=== PATIENT | male | born 1950 | race Caucasian/White ===

== ENCOUNTER 2022-06-14 07:07 | Outpatient (REF) | payer MEDICARE, SELFPAY ==
[2022-06-14 11:08] LABS: MANUAL DIFF FLAG NO
[2022-06-14 11:49] LABS: Basophils Percent Auto 0.7 % (0-2); Eosinophils Absolute Auto 0.4 X10*3/uL (0.0-0.4); Eosinophils Percent Auto 6.5 % (0-4); Hematocrit 40.7 % (42.0-52.0); Hemoglobin 13.7 g/dl (14.0-18.0); Imm Gran Abs Auto 0.04 X10*3/uL (0.00-0.03); Imm Gran Pct Auto 0.7 % (0.0-0.4); Lymphocytes Absolute Auto 1.5 X10*3/uL (1.2-4.9); Lymphocytes Percent Auto 26.4 % (20-40); Mean Corpuscular HGB Conc 33.7 g/dl (31.0-36.0); Mean Corpuscular Hemoglobin 32.4 pg (27.0-33.0); Mean Corpuscular Volume 96.2 fL (80.0-98.0); Mean Platelet Volume 11.8 fL (9.4-12.4); Monocytes Absolute Auto 0.6 X10*3/uL (0.1-1.2); Monocytes Percent Auto 10.6 % (2-11); Neutrophils Absolute Auto 3.1 x10*3/uL (2.0-8.3); Neutrophils Percent Auto 55.1 % (45-73); Platelet Count 301 X10*3/uL (160-400); Red Blood Count 4.23 X10*6/uL (4.60-5.80); White Blood Count 5.6 X10*3/uL (4.8-10.8)
[2022-06-14 12:09] LABS: Erythrocyte Sedimentation Rate 8 MM/HR (0-15)
[2022-06-14 12:34] LABS: Alanine Aminotransferase 24 U/L (0-40); Alkaline Phosphatase 52 U/L (39-117); Anion Gap 16 (12-20); Aspartate Amino Transferase 18 U/L (5-37); Blood Urea Nitrogen 11 mg/dL (9-16); Calcium 8.9 mg/dL (8.4-10.2); Carbon Dioxide 23 mmol/L (22-29); Chloride 107 mmol/L (96-108); Cholesterol 235 mg/dL; Estimated Glomerular Filt Rate > 60; Glucose Fasting 117 mg/dL (60-99); HDL Cholesterol 56 mg/dL; LDL Cholesterol Calculated 158 mg/dl; Potassium 4.5 mmol/L (3.3-5.1); Prostate Specific Antigen Scr 3.19 ng/mL (<0.05-4.0); Sodium 141 mmol/L (135-145); TSH reflex Free T4 1.21 uIU/mL (0.32-4.0); Total Protein 6.2 g/dL (6.5-8.0); Triglycerides 107 mg/dL
[2022-06-20 15:03] LABS: Testosterone, Free 73.6 pg/mL (30.0-135.0); Testosterone, Total 484 ng/dL (250-1100)
== END 2022-06-14 07:08 | disposition home or self-care (01) ==
LOC: HO.WFDLDS 07:07
PROVIDERS: Visit Provider Family Medicine
DX: Z00.00 Encounter for general adult medical examination without abnormal findings (principal); Z12.5 Encounter for screening for malignant neoplasm of prostate; R68.82 Decreased libido; M25.531 Pain in right wrist
CPT/HCPCS: 36415; 80053; 80061; 84153; 84402; 84403; 84443; 85025; 85652

== ENCOUNTER 2022-06-15 08:51 | Outpatient (REF) | payer MEDICARE, SELFPAY ==
[2022-06-15 12:27] LABS: Appearance Urine Clear; Color Urine Yellow; Glucose Urine UA Negative (Negative); Leukocyte Esterase Urine Negative (Negative); Nitrite Urine Negative (Negative); Specific Gravity - Urine <= 1.005 (1.005-1.025); Urine Blood Negative (Negative); Urine Ketones Negative (Negative); Urine Protein Negative (Neg-Trace)
[2022-06-15 13:36] LABS: Microalbumin Urine < 5.0 mg/L
== END 2022-06-15 08:52 | disposition home or self-care (01) ==
LOC: HO.WFDLNP 08:51
PROVIDERS: Visit Provider Family Medicine
DX: Z00.00 Encounter for general adult medical examination without abnormal findings (principal); I10 Essential (primary) hypertension
CPT/HCPCS: 81003; 82043

== ENCOUNTER 2022-06-27 14:50 | Outpatient (REF) | payer MEDICARE, SELFPAY ==
--- NOTE | ~2022-06-27 | US_ITS ---
EXAMINATION: US SCROTUM CLINICAL INFORMATION: Other specified disorders of the male genital organs. Left testicular/scrotal mass. No impulse with Valsalva or cough. COMPARISON: None available. TECHNIQUE: A sonogram of the scrotum was performed assessing daniel-scale appearance and color Doppler flow. Spectral Doppler analysis of the arterial and venous flow were performed in the testes bilaterally. FINDINGS: RIGHT: Right testicle measures 5.2 x 2.5 x 3.2 cm, volume 22.0 mL. No focal testicular parenchymal lesions are visualized. Spectral Doppler analysis of the arterial and venous flow is normal in the right testis. Right epididymal head is normal in size. 9 mm, 7 mm and 4 mm right epididymal head cysts versus spermatoceles are seen. No right varicocele is seen. There is a small right hydrocele. Right epididymal Doppler flow is normal. LEFT: Left testicle measures 4.9 x 2.7 x 3.5 cm, volume 23.7 mL. No focal testicular parenchymal lesions are visualized. Spectral Doppler analysis of the arterial and venous flow is normal in the left testis. Left epididymal head is normal in size. Within the left epididymal head, a 6.8 x 4.1 x 4.8 cm complex cyst is seen. No left hydrocele or varicocele is seen. Left epididymal Doppler flow is normal. US/US scrotum IMPRESSION: 1. No testicular mass or torsion is seen bilaterally. 2. There are bilateral epididymal head cysts versus spermatoceles. The largest of these on the left shows a maximal diameter of 6.8 cm, with septations. This corresponds with the palpable mass described the patient. Consider Urology evaluation and management. 3. There is a small right hydrocele.
--- NOTE | ~2022-06-27 | XR_ITS ---
EXAMINATION: XR HIP, RIGHT XR HIP, LEFT CLINICAL INFORMATION: Bilateral hip pain. COMPARISON: None available. TECHNIQUE: Two views of each of the hips. FINDINGS: Examination demonstrates moderate to severe osteoarthritis of the right hip and moderate osteoarthritis of the left hip, with joint space narrowing, sclerosis, and osteophyte formation. No fracture or dislocation is appreciated. Bony mineralization appears preserved. No lytic or sclerotic bony lesion is seen. No soft tissue mass is seen. Surgical clips project over the scrotum. 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 Moderate osteoarthritis of the left.
--- NOTE | ~2022-06-27 | XR_ITS ---
EXAMINATION: XR HIP, RIGHT XR HIP, LEFT CLINICAL INFORMATION: Bilateral hip pain. COMPARISON: None available. TECHNIQUE: Two views of each of the hips. FINDINGS: Examination demonstrates moderate to severe osteoarthritis of the right hip and moderate osteoarthritis of the left hip, with joint space narrowing, sclerosis, and osteophyte formation. No fracture or dislocation is appreciated. Bony mineralization appears preserved. No lytic or sclerotic bony lesion is seen. No soft tissue mass is seen. Surgical clips project over the scrotum. 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 Moderate osteoarthritis of the left.
== END 2022-06-27 14:51 | disposition home or self-care (01) ==
LOC: HO.US 14:50
PROVIDERS: PCP Family Medicine; Visit Provider Family Medicine
DX: N50.89 Other specified disorders of the male genital organs (principal); M25.551 Pain in right hip; M25.552 Pain in left hip
CPT/HCPCS: 73502; 76870

== ENCOUNTER → 2022-08-04 13:42 | Outpatient (BNVA) | payer MEDICARE, SELFPAY | PROVIDERS: PCP Family Medicine; Visit Provider Nurse Practitioner Family | DX: N43.3 Hydrocele, unspecified (principal); N52.9 Male erectile dysfunction, unspecified | CPT/HCPCS: 99202 ==

== ENCOUNTER 2022-11-10 14:21 | Outpatient (AMB) | payer MEDICARE, SELFPAY ==
--- NOTE | 2022-11-10 14:31 | A.OFFVIS_ITS ---
Intake Intake Visit Reasons: Testicular pain- 3m follow up Intake Note: Patient presents for follow up visit testicular pain/hydrocele Urology Medications: tadalafil Blood Thinner: none Health Technician Required: No Accompanied by: Self / Same As Patient Allergies No Known Allergies Allergy (Verified 11/12/22 21:34) Medication List - Last Reconciled 11/12/22 by JEFFREY Gomez lisinopril 40 mg PO DAILY 30 days tadalafil (Cialis) 5 mg PO DAILY 90 days tadalafil (Cialis) 15 mg (3 x 5 mg) PO DAILY PRN 90 days HPI HPI Comments History of Present Illness Details Thanh is a pleasant 72-year-old male patient of Dr. Jordan. He presents to the office today for a follow up. Of note, patient was seen approximately 3 months ago as a new patient for erectile dysfunction at which time he was prescribed p.r.n. on demand Cialis. In discussion with the patient today reports to be doing and feeling well. He reports somewhat improvement in erections on p.r.n. 20 mg Cialis. Discussed trial of low-dose Cialis daily with p.r.n. on demand versus penile injection therapy for treatment of ED. Patient also with a history of bilateral epididymal head cysts versus spermatoceles. The largest of these on the left shows a maximal diameter of 6.8 cm with septations. There is a small right hydrocele. Patient denies testicular/scrotal pain. He denies urinary urgency, urinary frequency, incontinence, nocturia, hematuria, dysuria, foul smelling urine, changes to urinary stream, flank pain, fever, and or chills. He is happy with his current voiding parameters. In review of patient's chart it appears PSA 06/22--3.2 testosterone level-- 484. PFSH Medical History Hypertension Family History Mother Hypertension Hyperlipidemia No family history of mental disorder Father No family history of mental disorder Hypertension Hyperlipidemia Social History Household Members: Spouse Housing: House Alcohol intake: current Alcohol intake frequency: 3 or more drinks per day Alcohol type: beer Patient Tobacco Use Status: Never used Tobacco e-Cigarette/Vaping Use: Never Used Second Hand Smoke Exposure: No Current occupational status: employed Review of Systems Const All systems reviewed & are unremarkable except as noted in HPI and below Reports as per HPI Eyes Reports no additional complaints ENT Reports no additional complaints Card Reports no additional complaints Resp Reports no additional complaints GI Reports no additional complaints Reports as per HPI Neuro Reports no additional complaints Psych Reports no additional complaints Endo Reports no additional complaints Gilberto/Lymph Reports no additional complaints Aller/Immun Reports no additional complaints Physical Exam Const General: cooperative, healthy appearing, comfortable, no acute distress, well developed, alert and awake Orientation/consciousness: patient oriented x3 Limitations: no limitations HEENT Head: Yes normal to inspection, Yes normocephalic and Yes atraumatic Ears: hearing grossly normal bilaterally Eyes General: appearance normal, both eyes and all related structures Neck Neck: Yes normal visual inspection and Yes trachea midline Chest Chest palpation & inspection: normal inspection of the chest Resp Effort & Inspection: normal respiratory effort and able to speak in complete sentences Cardio Rate: regular rate GI Inspection: Yes normal to inspection General: Yes no CVA tenderness Back/Spine/Pelvis Back: no CVA tenderness Skin General skin exam: no rashes or lesions noted Neuro General: patient oriented x3 Extrem General: Yes normal to inspection Psych Appearance: grossly normal and well kempt Mental Status: mental status grossly normal Speech and movement: Normal speech and movement present and Clear speech present Affect: normal affect Attitude: cooperative Thought process: Normal thought process present Thought content: Normal thought content present Insight: Good insight present (Psych) Judgement: Good judgement present (Psych) Results AMB Urinalysis, Automated UA Leukoctes 0 Janet/uL Last Edit by [employer] on 11/10/22 14:52 UA Nitrite Negative Last Edit by [employer] on 11/10/22 14:52 UA Urobilinogen 0.2 mg/dL Last Edit by [employer] on 11/10/22 14:52 UA Protein 0 mg/dL Last Edit by [employer] on 11/10/22 14:52 UA pH 6.0 Last Edit by [employer] on 11/10/22 14:52 UA Blood 0 Carlos/uL Last Edit by [employer] on 11/10/22 14:52 UA Specific [place] 1.010 Last Edit by Donytresguadalupe Ovallenavya on 11/10/22 14:52 UA Ketone Negative Last Edit by Adelina Yamilenavya on 11/10/22 14:52 UA Bilirubin 0 mg/dL Last Edit by Adelina Yamilenavya on 11/10/22 14:52 UA Glucose 0 mg/dL Last Edit by Adelina Yamilenavya on 11/10/22 14:52 Results Reviewed Results Reviewed: Laboratory Last Values Urine pH (Auto) 6.0 11/10/22 14:49 Specific [place] (Auto) 1.010 11/10/22 14:49 Urine Protein (Auto) 0 mg/dL 11/10/22 14:49 Glucose (UA)(Auto) 0 mg/dL 11/10/22 14:49 Urine Ketones (Auto) Negative 11/10/22 14:49 Urine Blood (Auto) 0 Carlos/uL 11/10/22 14:49 Urine Nitrite (Auto) Negative 11/10/22 14:49 Urine Bilirubin (Auto) 0 mg/dL 11/10/22 14:49 Urine Urobilinogen (Auto) 0.2 mg/dL 11/10/22 14:49 Leukocyte Esterase (Auto) 0 Janet/uL 11/10/22 14:49 Assessment & Plan Assessment & Plan (1) Erectile dysfunction: Code(s): N52.9 - Male erectile dysfunction, unspecified (2) Hydrocele: Code(s): N43.3 - Hydrocele, unspecified Plan Patient reporting somewhat adequate erections for penetration on 20 mg of Cialis p.r.n. sexual activity; however would like to trial daily low dose with PRN on demand. Stop PRN Start Cialis 5 mg daily. P.r.n. Cialis 10-15 mg as needed for sexual activity Discussed penile injection therapy for erectile dysfunction at length; information regarding penile injection therapy provided Will continue with surveillance monitoring of hydrocele; patient denies pain Patient reports be happy with current voiding parameters and denies any issues with his urination at this time. Follow-up in 3 months; if not sooner with any questions, concerns, and or issues. Orders: Orders AMB Urinalysis Automated 11/10/22 Z13.9 - Encounter for screening, unspecified Medications: New tadalafil (Cialis) [id number] [facility] [id number] Member [id number] 5 mg PO DAILY 90 tabs 0RF 90 days tadalafil (Cialis) Take 2-3 tabs 30min- 1 hour prior to sexual activity; use as directed 15 mg (3 x 5 mg) PO DAILY PRN 90 tabs 0RF sexual activity 90 days Discontinued tadalafil (Cialis) administer approximately 30min before sexual activity; do not use more than 1 dose per 24hrs [facility] Group [facility] [id number] Discontinued Reason: Doctor's Order 20 mg PO DAILY PRN 20 tabs 0RF sexual activity 30 days Patient Instructions: The patient had an opportunity to ask questions regarding the treatment plan. All questions were answered. Physical exam, labs, and imaging were discussed and reviewed in detail. As well as risks, benefits, and discussion of treatment choices. No major barriers to understanding were identified. The patient expressed understanding and agreement with the above treatment plan. The patient was made aware they should contact our office by phone for worsening of their current condition, the appearance of new symptoms, or with any questions or concerns. Compliance is encouraged with any medications and follow up testing that is ordered. It is a privilege to be allowed the opportunity to participate in? your urological care.? Again, if you have any questions or concerns If you have any questions or concerns please do not hesitate to contact me. The office is [phone]. This note is constructed using voice recognition software. While every effort has been made to ensure accuracy blanching machine operator errors may have been included. Yours sincerely, JEFFREY Gomez Coding Level of Care Code Est Pt Level 3 (50930) Diagnoses Erectile dysfunction N52.9 Hydrocele N43.3
== END 2022-11-10 15:32 | disposition home or self-care (01) ==
PROVIDERS: Visit Provider Nurse Practitioner Family
DX: N52.9 Male erectile dysfunction, unspecified (principal); N43.3 Hydrocele, unspecified
CPT/HCPCS: 99213

== ENCOUNTER → 2022-11-10 14:21 | Outpatient (BNVA) | payer MEDICARE, SELFPAY | PROVIDERS: Visit Provider Nurse Practitioner Family | DX: N52.9 Male erectile dysfunction, unspecified (principal); N43.3 Hydrocele, unspecified; Z79.899 Other long term (current) drug therapy | CPT/HCPCS: 99212 ==

== ENCOUNTER 2023-02-12 14:25 | Outpatient (AMB) | payer MEDICARE, SELFPAY ==
--- NOTE | 2023-02-12 14:28 | MHC.OFFVIS ---
Intake Intake Visit Reasons: 3m follow up Intake Note: Patient presents for follow up visit testicular pain/hydrocele Urology Medications: tadalafil Blood Thinner: none Upsetting Machine Operator Required: No Accompanied by: Self / Same As Patient Allergies No Known Allergies Allergy (Verified 02/12/23 18:22) Medication List - Last Reconciled 02/12/23 by JEFFREY Gomez lisinopril 40 mg PO DAILY 30 days meloxicam 15 mg PO DAILY 30 days HPI HPI Comments History of Present Illness Details Thanh is a pleasant 72-year-old male patient of Dr. Joradn. He has a past medical history of hypertension. He presents to the office today for a follow up of his erectile dysfunction. In discussion with the patient today he reports no improvement in erectile dysfunction with low-dose daily Cialis with additional dosing p.r.n. 1 hour prior to sexual activity. Discussed at length potential causes for erectile dysfunction patient has been experiencing. Previous workup has included labs; PSA 06/22--3.2 testosterone level-- 484. Patient also with a history of bilateral epididymal head cysts versus spermatoceles. The largest of these on the left shows a maximal diameter of 6.8 cm with septations. There is a small right hydrocele. Patient denies testicular/scrotal pain. He denies urinary urgency, urinary frequency, incontinence, nocturia, hematuria, dysuria, foul smelling urine, changes to urinary stream, flank pain, fever, and or chills. He is happy with his current voiding parameters. Discussed trial of injectable therapy for erectile dysfunction. Patient otherwise denies any other issues or concerns at this time. [facility] Medical History Hypertension Family History Mother Hypertension Hyperlipidemia No family history of mental disorder Father No family history of mental disorder Hypertension Hyperlipidemia Social History Household Members: Spouse Housing: House Alcohol intake: current Alcohol intake frequency: 3 or more drinks per day Alcohol type: beer Patient Tobacco Use Status: Never used Tobacco e-Cigarette/Vaping Use: Never Used Second Hand Smoke Exposure: No Current occupational status: employed Review of Systems Const All systems reviewed & are unremarkable except as noted in HPI and below Reports as per HPI Eyes Reports no additional complaints ENT Reports no additional complaints Card Reports as per HPI Resp Reports no additional complaints GI Reports no additional complaints Reports as per HPI Neuro Reports no additional complaints Psych Reports no additional complaints Endo Reports no additional complaints Gilberto/Lymph Reports no additional complaints Aller/Immun Reports no additional complaints Physical Exam Const General: cooperative, healthy appearing, comfortable, no acute distress, well developed, alert and awake Orientation/consciousness: patient oriented x3 Limitations: no limitations HEENT Head: Yes normal to inspection, Yes normocephalic and Yes atraumatic Ears: hearing grossly normal bilaterally Eyes General: appearance normal, both eyes and all related structures Neck Neck: Yes normal visual inspection and Yes trachea midline Chest Chest palpation & inspection: normal inspection of the chest Resp Effort & Inspection: normal respiratory effort and able to speak in complete sentences Cardio Rate: regular rate GI Inspection: Yes normal to inspection General: Yes no CVA tenderness Back/Spine/Pelvis Back: no CVA tenderness Skin General skin exam: no rashes or lesions noted Neuro General: patient oriented x3 Extrem General: Yes normal to inspection Psych Appearance: grossly normal and well kempt Mental Status: mental status grossly normal Speech and movement: Normal speech and movement present and Clear speech present Affect: normal affect Attitude: cooperative Thought process: Normal thought process present Thought content: Normal thought content present Insight: Good insight present (Psych) Judgement: Good judgement present (Psych) Results AMB Urinalysis, Automated UA Leukoctes 0 Janet/uL Last Edit by [employer] on 02/12/23 14:41 UA Nitrite Negative Last Edit by [employer] on 02/12/23 14:41 UA Urobilinogen 0.2 mg/dL Last Edit by [employer] on 02/12/23 14:41 UA Protein 0 mg/dL Last Edit by [employer] on 02/12/23 14:41 UA pH 6.0 Last Edit by [employer] on 02/12/23 14:41 UA Blood 0 Carlos/uL Last Edit by [employer] on 02/12/23 14:41 UA Specific [place] 1.010 Last Edit by [employer] on 02/12/23 14:41 UA Ketone Negative Last Edit by [employer] on 02/12/23 14:41 UA Bilirubin 0 mg/dL Last Edit by Adelina Milian on 02/12/23 14:41 UA Glucose 0 mg/dL Last Edit by Adelina Milian on 02/12/23 14:41 Results Reviewed Results Reviewed: Laboratory Last Values Urine pH (Auto) 6.0 02/12/23 14:30 Specific [place] (Auto) 1.010 02/12/23 14:30 Urine Protein (Auto) 0 mg/dL 02/12/23 14:30 Glucose (UA)(Auto) 0 mg/dL 02/12/23 14:30 Urine Ketones (Auto) Negative 02/12/23 14:30 Urine Blood (Auto) 0 Carlos/uL 02/12/23 14:30 Urine Nitrite (Auto) Negative 02/12/23 14:30 Urine Bilirubin (Auto) 0 mg/dL 02/12/23 14:30 Urine Urobilinogen (Auto) 0.2 mg/dL 02/12/23 14:30 Leukocyte Esterase (Auto) 0 Janet/uL 02/12/23 14:30 Assessment & Plan Assessment & Plan (1) Erectile dysfunction: Code(s): N52.9 - Male erectile dysfunction, unspecified (2) Hydrocele: Code(s): N43.3 - Hydrocele, unspecified Plan In office urinalysis results reviewed with the patient today; as noted above. Discussed at length potential causes of erectile dysfunction. Discussed further treatment options of erectile dysfunction in the setting of failed oral therapy. Information provided on penile injection therapy; this was discussed at length Patient otherwise denies any bothersome urinary issues or concerns at this time. Patient reports be happy with current voiding parameters. Discussed and stressed the importance of lifestyle modifications regarding erectile dysfunction. Will send prescription through [facility] as discussed Will call once medication is available for penile injection teaching. Orders: Orders AMB Urinalysis Automated Today Z13.9 - Encounter for screening, unspecified Medications: Discontinued tadalafil (Cialis) [id number] [facility] [id number] Member [id number] Discontinued Reason: Doctor's Order 5 mg PO DAILY 90 days 90 tabs 0RF tadalafil (Cialis) Take 2-3 tabs 30min- 1 hour prior to sexual activity; use as directed Discontinued Reason: Doctor's Order 15 mg (3 x 5 mg) PO DAILY 90 days PRN 90 tabs 0RF sexual activity Patient Instructions: The patient had an opportunity to ask questions regarding the treatment plan. All questions were answered. Physical exam, labs, and imaging were discussed and reviewed in detail. As well as risks, benefits, and discussion of treatment choices. No major barriers to understanding were identified. The patient expressed understanding and agreement with the above treatment plan. The patient was made aware they should contact our office by phone for worsening of their current condition, the appearance of new symptoms, or with any questions or concerns. Compliance is encouraged with any medications and follow up testing that is ordered. It is a privilege to be allowed the opportunity to participate in? your urological care.? Again, if you have any questions or concerns If you have any questions or concerns please do not hesitate to contact me. The office is [phone]. This note is constructed using voice recognition software. While every effort has been made to ensure accuracy gravedigger errors may have been included. Yours sincerely, JEFFREY Gomez Coding Level of Care Code Est Pt Level 3 (80402) Diagnoses Erectile dysfunction N52.9 Hydrocele N43.3
== END 2023-02-12 15:04 | disposition home or self-care (01) ==
PROVIDERS: PCP Family Medicine; Visit Provider Nurse Practitioner Family
DX: N52.9 Male erectile dysfunction, unspecified (principal); N43.3 Hydrocele, unspecified; Z13.9 Encounter for screening, unspecified
CPT/HCPCS: 99213

== ENCOUNTER → 2023-02-12 14:25 | Outpatient (BNVA) | payer MEDICARE, SELFPAY | PROVIDERS: PCP Family Medicine; Visit Provider Nurse Practitioner Family | DX: N52.9 Male erectile dysfunction, unspecified (principal); N43.3 Hydrocele, unspecified | CPT/HCPCS: 81003; 99212 ==

== ENCOUNTER 2023-04-05 15:47 | Outpatient (AMB) | payer MEDICARE, SELFPAY ==
[2023-04-05 15:52] VITALS: BP 142/80; PULSE 61; RESP 14; O2SAT 97; BMI 30.6
--- NOTE | 2023-04-05 15:52 | MHC.PC.OV ---
Vital Signs 04/05/23 15:52 Height 5 ft 10.5 in Weight 216 lb BMI 30.6 BP 142/80 H Blood Pressure Location Lt brachial Position Sitting Respiration 14 Pulse 61 Pulse Source Pulse Oximeter Pulse Oximetry (%) 97 Oxygen Delivery Method Room Air Intake Visit Reasons: PE Intake Note: Patient is here for his physical today. Allergies No Known Allergies Allergy (Verified 04/05/23 16:01) Tobacco use date assessed: 04/05/23 Fall risk assessment: No Falls in past year Last assessed Fall Risk: 04/05/23 Dental Screening Dental Screen Date: 04/05/23 Did you have a dental visit in the last 12 months?: No Did you have a dental problem in the last 6 months where you did not have access to dental care?: No Was dental information given to patient?: Patient declined HPI PE HPI Details Patient?presents?for?complete?physical?exam. Had?labs?in?May?after?his?last?visit Reviewed?labs?with?patient: Elevated?fasting?blood?sugar?at?117 Elevated?LDL?cholesterol?though?his?HDL?is?good PSA?within?normal?limits?at?upper?range. Testosterone?levels?were?within?normal?limits He?has?seen?Urology. Ultrasound?of?scrotum?shows?epididymal?cysts X-rays?of?bilateral?hips?shows?moderate?arthritis. [facility] Medical History Hypertension Family History Mother Hypertension Hyperlipidemia No family history of mental disorder Father No family history of mental disorder Hypertension Hyperlipidemia Social History Household Members: Spouse Housing: House Alcohol intake: current Alcohol intake frequency: 3 or more drinks per day Alcohol type: beer Patient Tobacco Use Status: Never used Tobacco e-Cigarette/Vaping Use: Never Used Second Hand Smoke Exposure: No Current occupational status: employed Cognitive needs: No Hearing needs: No Vision needs: No Questionnaire PHQ-9 Over the last 2 weeks, how often have you been bothered by any of the following problems? 1. Little interest or pleasure in doing things: not at all 2. Feeling down, depressed, or hopeless: not at all 3. Trouble falling or staying asleep, or sleeping too much: not at all 4. Feeling tired or having little energy: not at all 5. Poor appetite or overeating: not at all 6. Feeling bad about yourself - or that you are a failure or have let yourself or your family down: not at all 7. Trouble concentrating on things, such as reading the newspaper or watching television: not at all 8. Moving or speaking so slowly that other people could have noticed. Or the opposite - being so fidgety or restless that you have been moving around a lot more than usual: not at all 9. Thoughts that you would be better off or of hurting yourself in some way: not at all Total score: 0 Source: Developed by Drs. Ben Mcallister, Antoinette Machaod, Garcia Joyce and colleagues, with an educational agnes from [employer]. Thrive Questionnaire Date Thrive assessed: 04/05/23 I am a: Patient What is your living situation today?: I have a steady place to live Within the past 12 months, did the food you bought not last and you didn't have the money to get more?: Never true Within the past 12 months, did you worry whether your food would run out before you got money to buy more?: Never true Do you have trouble paying for medicines?: No Do you have trouble getting transportation to medical appointments?: No Do you have trouble paying your heating and electricity bill?: No Do you have trouble taking care of your child, family member or friend?: No Do you have trouble with day-to-day activities such as bathing, preparing meals, shopping, managing finances, etc.?: No Are you currently unemployed and looking for a job?: No Are you interested in more education?: No AUDIT C Alcohol Use Questionnaire (AUDIT-C) 1. How often do you have a drink containing alcohol?: 4 or more times a week 2. How many drinks containing alcohol do you have on a typical day when you are drinking?: 1 or 2 3. How often do you have six or more drinks on one occasion?: Never Total Score: 4 YASMINE-7 AMB Questionnaire YASMINE-7 Date YASMINE - 7 assessed: 04/05/23 Feeling nervous, anxious, or on edge: 0 = Not at all Not being able to stop or control worryin = Not at all Worrying too much about different things: 0 = Not at all Trouble relaxin = Not at all Being so restless that it is hard to sit still: 0 = Not at all Becoming easily annoyed or irritable: 0 = Not at all Feeling afraid as if something awful might happen: 0 = Not at all Total YASMINE-7 score (0-4 normal; 5-9 mild; 10-14 moderate; 15-21 severe): 0 Source: Developed by Drs. Ben Mcallister, Antoinette Machado, Garcia Joyce and colleagues, with an educational agnes from [employer]. Review of Systems Const Denies chills, Denies fatigue, Denies fever(s), Denies headache(s) and Denies weakness Eyes Denies change in vision ENT Denies dizziness, Denies headache(s), Denies hearing loss, Reports nasal congestion, Denies sinus pain, Denies sinus pressure and Denies sore throat Card Denies chest pain, Denies lightheadedness, Denies dyspnea and Denies other (palpitations) Resp Denies cough, Denies dyspnea and Denies wheezing GI Denies abdominal pain, Denies melena, Denies hematochezia, Denies change in bowel habits, Denies dyspepsia and Denies nausea Denies hematuria and Denies dysuria Musc Details: Left?biceps?weakness Denies abnormal gait, Denies myalgias, Denies arthralgias, Denies numbness and Denies tingling Skin/Breast Denies rash, Denies unusual bruising and Denies wounds Neuro Denies abnormal gait, Denies dizziness, Denies headache(s), Denies memory loss, Denies numbness, Denies Sensory deficit (Neuro), Denies tingling and Denies weakness Psych Denies anxiety, Denies depression and Denies memory loss Endo Denies cold intolerance, Denies fatigue, Denies heat intolerance, Denies polydipsia and Denies polyuria Gilberto/Lymph Denies easy bleeding and Denies easy bruising Aller/Immun Denies wheezing Physical exam (Primary Care) Vital Signs: Last Vital Signs Pulse 61 04/05/23 15:52 Resp 14 04/05/23 15:52 BP 142/80 H 04/05/23 15:52 Pulse Ox 97 04/05/23 15:52 Oxygen Delivery Method Room Air 04/05/23 15:52 BMI result Body Mass Index 30.6 Tobacco/Smoking Status: Tobacco use Status Tobacco use date assessed 04/05/23 04/05/23 16:02 Patient Tobacco Use Status Never used Tobacco 04/05/23 16:00 e-Cigarette/Vaping Use Never Used 04/05/23 16:00 PHQ-9: PHQ-9 Score PHQ-9: Total score 0 04/05/23 16:07 Thrive Assessment: Date of Thrive Assessment Date Thrive assessed 04/05/23 04/05/23 16:07 Const General: no acute distress, well developed, alert and awake Nutritional Appearance: well nourished Orientation/consciousness: patient oriented x3 HENMT Other: Mild?nasal?congestion Head: Yes normocephalic and Yes atraumatic Ears: hearing grossly normal bilaterally and TM's normal bilaterally General nose exam: Normal external nose present and Normal nares present Mouth: Normal oral and palatal mucosa present and moist mucous membranes Teeth and gingiva: dentition normal Throat: Yes posterior oropharynx normal Eyes Pupils: Equal, round and reactive pupils present and Pupil accommodation reflex normal EOM: EOMs intact bilaterally Neck Neck: Yes normal visual inspection, Yes no lymphadenopathy and Yes trachea midline Thyroid: Thyroid normal Carotids: no bruits Lymphatic: no lymphadenopathy noted Chest Chest palpation & inspection: normal inspection of the chest Resp Effort & Inspection: normal respiratory effort Auscultation: clear to auscultation bilaterally Cardio Rate: regular rate Rhythm: regular rhythm Heart sounds: S1 normal heart sound present, S2 normal heart sound present, no gallops, no murmurs and no rubs Bruits: no abdominal aortic bruits and no carotid bruits GI Palpation (GI): No Abdominal aortic bruit present, Soft to palpation, nontender, No hepatosplenomegaly present and No Rebound tenderness present Auscultation: normal bowel sounds General: Yes no CVA tenderness Back/Spine/Pelvis Back: no CVA tenderness Cervical Spine: cervical ROM normal and No Cervical spine tenderness Thoracic/Lumbar Spine: thoraco-lumbar ROM normal, No pain with thoraco-lumbar ROM, No thoracic spinal tenderness and No lumbar spinal tenderness Skin Lesions: no lesions Rashes: no rashes Trauma: no lacerations or abrasions Wounds: no wounds Nails: normal Neuro General: patient oriented x3, gait normal and CN's II-XI intact bilaterally Cranial nerves: Yes Equal, round and reactive pupils present Cognition (Neuro): normal cognition Gait exam (Neuro): Normal gait present Motor exam (neuro): 5/5 motor strength present throughout Sensory Exam: No Sensory deficit (Neuro) Deep tendon reflexes (DTR's): Right patellar reflex intensity grade: 2+ and Left patellar reflex intensity grade: 2+ Extrem Other: Left?biceps?weakness: ?Strength?4/5?with?flexion?at?elbow?and?shoulder General: Yes normal to inspection and No edema Psych Appearance: grossly normal Affect: normal affect Attitude: cooperative Thought process: Normal thought process present Results AMB Hemoglobin A1c AMB Hemoglobin A1c 5.6 % Last Edit by Ilda Espinoza CMA on 04/05/23 16:49 Assessment and Plan Assessment & Plan (1) Strain of left biceps: Code(s): S46.212A - Strain of muscle, fascia and tendon of other parts of biceps, left arm, initial encounter Plan: History?of?left?biceps?strain?and?has?left?arm?weakness. Patient?is?a?[place]rate[place]?and?has?difficulty?drawing?a?bow Referred?for?physical?therapy (2) Muscle left arm weakness: Code(s): M62.81 - Muscle weakness (generalized) Plan: As?above (3) Essential hypertension: Code(s): I10 - Essential (primary) hypertension Plan: Blood?pressure?is?elevated.??Goal?is?less?than?140/90 Continue?lisinopril?and?added?amlodipine Follow-up?at?his?next?visit (4) Hyperlipidemia: Code(s): E78.5 - Hyperlipidemia, unspecified Plan: Elevated?LDL?cholesterol.??HDL?ratio?is?fairly?good. Encouraged?diet?low?in?saturated?fats?and?cholesterol Encouraged?weight?loss (5) Elevated fasting blood sugar: Code(s): R73.01 - Impaired fasting glucose Plan: A1c?5.6%?which?is?top?normal?range Encouraged?diet?low?in?sugars?and?starches Encouraged?weight?loss?and?exercise (6) Adult general medical exam: Code(s): Z00.00 - Encounter for general adult medical examination without abnormal findings Plan: 72-year-old?male?presents?for?an?extended?exam Encouraged?healthy?diet?with?active?lifestyle?and?plenty?of?exercise Orders: Orders AMB Hemoglobin A1c Today Z13.9 - Encounter for screening, unspecified PT Evaluation and Treatment Today M62.81 - Muscle weakness (generalized), S46.212A - Strain of muscle, fascia and tendon of other parts of biceps, left arm, initial encounter Medications: New amlodipine 5 mg PO DAILY 30 days 30 tabs 2RF fluticasone propionate 50 mcg/actuation (Flonase Allergy Relief) administer into each nostril 1 spray intranasal Q12H 30 days 16 grams 2RF Coding Level of Care Code Est Pt Level 4 (69266) Diagnoses Strain of left biceps S46.212A Muscle left arm weakness M62.81 Essential hypertension I10 Hyperlipidemia E78.5 Elevated fasting blood sugar R73.01 Adult general medical exam Z00.00
== END 2023-04-05 17:05 | disposition home or self-care (01) ==
PROVIDERS: PCP Family Medicine; Visit Provider Family Medicine
DX: Z00.00 Encounter for general adult medical examination without abnormal findings (principal); S46.212A Strain of muscle, fascia and tendon of other parts of biceps, left arm, initial encounter; M62.81 Muscle weakness (generalized); I10 Essential (primary) hypertension; E78.5 Hyperlipidemia, unspecified; R73.01 Impaired fasting glucose
CPT/HCPCS: 83036; 99397

== ENCOUNTER 2023-04-12 13:38 | Outpatient (AMB) | payer MEDICARE, SELFPAY ==
--- NOTE | 2023-04-12 13:45 | A.OFFVIS_ITS ---
Intake Intake Visit Reasons: Tri-mix teaching Intake Note: Patient presents today for tri-mix injection teaching Urology Medications: none Blood Thinner: none Environmental Safety Specialist Required: No Accompanied by: Self / Same As Patient Allergies No Known Allergies Allergy (Verified 04/12/23 19:37) Medication List - Last Reconciled 04/12/23 by JEFFREY Gomez amlodipine 5 mg PO DAILY 30 days fluticasone propionate 50 mcg/actuation (Flonase Allergy Relief) 1 spray intranasal Q12H 30 days lisinopril 40 mg PO DAILY 90 days meloxicam 15 mg PO DAILY 30 days HPI HPI Comments History of Present Illness Details Thanh is a pleasant 72-year-old male patient of Dr. Jordan. He has a past medical history of hypertension. He presents to the office today for a follow up of his erectile dysfunction. Of note, patient has failed all oral therapy for erectile dysfunction. During last office visit recommendations were made for penile injection therapy and initial dosing and education was provided in office today. Penile injection performed in the office Medication provided through [facility] pharmacy Good response to TriMix initial 30 units. Suggested 30 units of TriMix initial. Sterile technique used Teaching provided for identification of injection sites CPT 53858 Education provided Discussed at length potential causes for erectile dysfunction patient has been experiencing. Previous workup has included labs; PSA 06/22--3.2 testosterone level-- 484. Patient also with a history of bilateral epididymal head cysts jesus angel spermatoceles. The largest of these on the left shows a maximal diameter of 6.8 cm with septations. There is a small right hydrocele. Patient denies testicular/scrotal pain. He denies urinary urgency, urinary frequency, incontinence, nocturia, hematuria, dysuria, foul smelling urine, changes to urinary stream, flank pain, fever, and or chills. He is happy with his current voiding parameters. Patient otherwise denies any other issues or concerns at this time. [facility] Medical History Hypertension Family History Mother Hypertension Hyperlipidemia No family history of mental disorder Father No family history of mental disorder Hypertension Hyperlipidemia Social History Household Members: Spouse Housing: House Alcohol intake: current Alcohol intake frequency: 3 or more drinks per day Alcohol type: beer Patient Tobacco Use Status: Never used Tobacco e-Cigarette/Vaping Use: Never Used Second Hand Smoke Exposure: No Current occupational status: employed Cognitive needs: No Hearing needs: No Vision needs: No Review of Systems Const All systems reviewed & are unremarkable except as noted in HPI and below Reports as per HPI Eyes Reports no additional complaints ENT Reports no additional complaints Card Reports as per HPI Resp Reports no additional complaints GI Reports no additional complaints Reports as per HPI Neuro Reports no additional complaints Psych Reports no additional complaints Endo Reports no additional complaints Gilberto/Lymph Reports no additional complaints Aller/Immun Reports no additional complaints Physical Exam Const General: cooperative, healthy appearing, comfortable, no acute distress, well developed, alert and awake Orientation/consciousness: patient oriented x3 Limitations: no limitations HEENT Head: Yes normal to inspection, Yes normocephalic and Yes atraumatic Ears: hearing grossly normal bilaterally Eyes General: appearance normal, both eyes and all related structures Neck Neck: Yes normal visual inspection and Yes trachea midline Chest Chest palpation & inspection: normal inspection of the chest Resp Effort & Inspection: normal respiratory effort and able to speak in complete sentences Cardio Rate: regular rate GI Inspection: Yes normal to inspection General: Yes no CVA tenderness Back/Spine/Pelvis Back: no CVA tenderness Skin General skin exam: no rashes or lesions noted Neuro General: patient oriented x3 Extrem General: Yes normal to inspection Psych Appearance: grossly normal and well kempt Mental Status: mental status grossly normal Speech and movement: Normal speech and movement present and Clear speech present Affect: normal affect Attitude: cooperative Thought process: Normal thought process present Thought content: Normal thought content present Insight: Good insight present (Psych) Judgement: Good judgement present (Psych) Results AMB Urinalysis, Automated UA Leukoctes 0 Janet/uL Last Edit by [employer] on 04/12/23 14:19 UA Nitrite Negative Last Edit by [employer] on 04/12/23 14:19 UA Urobilinogen 0.2 mg/dL Last Edit by [employer] on 04/12/23 14:19 UA Protein 0 mg/dL Last Edit by [employer] on 04/12/23 14:19 UA pH 6.0 Last Edit by [employer] on 04/12/23 14:19 UA Blood 0 Carlos/uL Last Edit by Adelina Milian on 04/12/23 14:19 UA Specific [place] 1.010 Last Edit by Adelina Milian on 04/12/23 14:19 UA Ketone Negative Last Edit by Adelina Milian on 04/12/23 14:19 UA Bilirubin 0 mg/dL Last Edit by Adelina Milian on 04/12/23 14:19 UA Glucose 0 mg/dL Last Edit by Adelina Milian on 04/12/23 14:19 Results Reviewed Results Reviewed: Laboratory Last Values Urine pH (Auto) 6.0 04/12/23 14:18 Specific [place] (Auto) 1.010 04/12/23 14:18 Urine Protein (Auto) 0 mg/dL 04/12/23 14:18 Glucose (UA)(Auto) 0 mg/dL 04/12/23 14:18 Urine Ketones (Auto) Negative 04/12/23 14:18 Urine Blood (Auto) 0 Carlos/uL 04/12/23 14:18 Urine Nitrite (Auto) Negative 04/12/23 14:18 Urine Bilirubin (Auto) 0 mg/dL 04/12/23 14:18 Urine Urobilinogen (Auto) 0.2 mg/dL 04/12/23 14:18 Leukocyte Esterase (Auto) 0 Janet/uL 04/12/23 14:18 Assessment & Plan Assessment & Plan (1) Erectile dysfunction: Code(s): N52.9 - Male erectile dysfunction, unspecified (2) Hydrocele: Code(s): N43.3 - Hydrocele, unspecified Plan In office urinalysis results reviewed with the patient today; as noted above. Discussed at length potential causes of erectile dysfunction. Information provided on penile injection therapy; this was discussed at length Patient otherwise denies any bothersome urinary issues or concerns at this time. Patient reports be happy with current voiding parameters. Discussed and stressed the importance of lifestyle modifications regarding erectile dysfunction. PSA in 3 months Follow-up in 3 months with lab to be completed prior; or sooner with any issues, concerns, and or questions. Orders: Orders Prostate Specific Antigen 3 Months N40.0 - Benign prostatic hyperplasia without lower urinary tract symptoms AMB Urinalysis Automated Today Z13.9 - Encounter for screening, unspecified Patient Instructions: The patient had an opportunity to ask questions regarding the treatment plan. All questions were answered. Physical exam, labs, and imaging were discussed and reviewed in detail. As well as risks, benefits, and discussion of treatment choices. No major barriers to understanding were identified. The patient expressed understanding and agreement with the above treatment plan. The patient was made aware they should contact our office by phone for worsening of their current condition, the appearance of new symptoms, or with any questions or concerns. Compliance is encouraged with any medications and follow up testing that is ordered. It is a privilege to be allowed the opportunity to participate in? your urological care.? Again, if you have any questions or concerns If you have any questions or concerns please do not hesitate to contact me. The office is [phone]. This note is constructed using voice recognition software. While every effort has been made to ensure accuracy clock assembler errors may have been included. Yours sincerely, JEFFREY Gomez Coding Level of Care Code Est Pt Level 4 (74090) Diagnoses Erectile dysfunction N52.9 Hydrocele N43.3 Time Spent (min) 40
== END 2023-04-12 14:47 | disposition home or self-care (01) ==
LOC: HO.HUSH 13:38
PROVIDERS: PCP Family Medicine; Visit Provider Nurse Practitioner Family
DX: N52.9 Male erectile dysfunction, unspecified (principal); N43.3 Hydrocele, unspecified; Z13.9 Encounter for screening, unspecified
CPT/HCPCS: 99214

== ENCOUNTER → 2023-04-12 13:38 | Outpatient (BNVA) | payer MEDICARE, SELFPAY | PROVIDERS: PCP Family Medicine; Visit Provider Nurse Practitioner Family | DX: Z71.89 Other specified counseling (principal); N52.9 Male erectile dysfunction, unspecified; N43.3 Hydrocele, unspecified | CPT/HCPCS: 81003; 99212 ==

== ENCOUNTER 2023-06-29 12:18 | Outpatient (REF) | payer MEDICARE, SELFPAY ==
[2023-06-29 19:07] LABS: Prostate Specific Antigen 2.65 ng/mL (<0.05-4.0)
== END 2023-06-29 12:19 | disposition home or self-care (01) ==
LOC: HO.WFDLDS 12:18
PROVIDERS: Visit Provider Nurse Practitioner Family
DX: Z12.5 Encounter for screening for malignant neoplasm of prostate (principal); N40.0 Benign prostatic hyperplasia without lower urinary tract symptoms
CPT/HCPCS: 36415; 84153

== ENCOUNTER 2023-07-10 14:25 | Outpatient (AMB) | payer MEDICARE, SELFPAY ==
[2023-07-10 14:37] VITALS: BP 134/78; PULSE 74; O2SAT 95; BMI 30.3
--- NOTE | 2023-07-10 14:37 | A.OFFPC_ITS ---
Vital Signs 07/10/23 14:37 Height 5 ft 10.5 in Weight 214 lb 4 oz BMI 30.3 BP 134/78 Blood Pressure Location Lt brachial Position Sitting Pulse 74 Pulse Source Pulse Oximeter Pulse Oximetry (%) 95 Oxygen Delivery Method Room Air Intake Visit Reasons: f/u?hypertension?and?elevated?fasting?blood?sugar Intake Note: Patient is here for follow up on hypertension and elevated fasting blood sugar. Allergies No Known Allergies Allergy (Verified 07/10/23 14:38) Tobacco use date assessed: 07/10/23 Fall risk assessment: No Falls in past year Last assessed Fall Risk: 07/10/23 Dental Screening Dental Screen Date: 04/05/23 HPI f/u?hypertension?and?elevated?fasting?blood?sugar HPI Details 72 y/o male presents to f/u hypertension and elevated blood sugars. Blood pressure today 134/78. He is on lisinopril 40mg, amlodipine 5mg daily. A1c today 07/10/23 is 6.2%. HPI Comments History of Present Illness Details Documentation assistance for Vinicius Jordan MD, was provided by Devon Pizarro,? Channel Sales Manager on 07/10/2023 3:25 PM EST. I, Dr. Jordan, have read, observed, and verified documentation. PFSH Medical History Hypertension Family History Mother Hypertension Hyperlipidemia No family history of mental disorder Father No family history of mental disorder Hypertension Hyperlipidemia Social History Household Members: Spouse Housing: House Alcohol intake: current Alcohol intake frequency: 3 or more drinks per day Alcohol type: beer Patient Tobacco Use Status: Never used Tobacco e-Cigarette/Vaping Use: Never Used Second Hand Smoke Exposure: No Current occupational status: employed Cognitive needs: No Hearing needs: No Vision needs: No Questionnaire Thrive Questionnaire Date Thrive assessed: 04/05/23 YASMINE-7 AMB Questionnaire YASMINE-7 Date YASMINE - 7 assessed: 04/05/23 Source: Developed by Drs. Ben Mcallister, Antoinette Machado, Garcia Joyce and colleagues, with an educational agnes from [employer]. Review of Systems Const Denies chills, Denies fatigue, Denies fever(s), Denies headache(s) and Denies weakness ENT Denies dizziness and Denies headache(s) Card Denies dyspnea Resp Denies cough, Denies dyspnea, Denies wheezing and Denies other (shortness of breath) Musc Denies numbness and Denies tingling Neuro Denies dizziness, Denies headache(s), Denies numbness, Denies tingling and Denies weakness Psych Denies anxiety and Denies depression Endo Denies fatigue Aller/Immun Denies wheezing Physical exam (Primary Care) Vital Signs: Last Vital Signs Pulse 74 07/10/23 14:37 BP 134/78 07/10/23 14:37 Pulse Ox 95 07/10/23 14:37 Oxygen Delivery Method Room Air 07/10/23 14:37 BMI result Body Mass Index 30.3 Tobacco/Smoking Status: Tobacco use Status Tobacco use date assessed 07/10/23 07/10/23 15:11 Patient Tobacco Use Status Never used Tobacco 07/10/23 15:11 e-Cigarette/Vaping Use Never Used 07/10/23 15:11 Thrive Assessment: Date of Thrive Assessment Date Thrive assessed 04/05/23 07/10/23 15:11 Const General: well developed; No acute distress Nutritional Appearance: well nourished Orientation/consciousness: patient oriented x3 [facility] Head: Yes normocephalic and Yes atraumatic Eyes General: appearance normal, both eyes and all related structures Pupils: Equal, round and reactive pupils present EOM: EOMs intact bilaterally Resp Effort & Inspection: normal respiratory effort Auscultation: clear to auscultation bilaterally Cardio Rate: regular rate Rhythm: regular rhythm Heart sounds: S1 normal heart sound present, S2 normal heart sound present, no gallops, no murmurs and no rubs Neuro General: patient oriented x3 and gait normal Cranial nerves: Yes Equal, round and reactive pupils present Psych Affect: normal affect Assessment and Plan Assessment & Plan (1) Essential hypertension: Code(s): I10 - Essential (primary) hypertension Plan: Blood?pressure?is?controlled.??Goal?is?less?than?140/90 Continue?current?medication?regimen Work?on?diet?exercise,?weight?control?and?salt/sodium?avoidance (2) Pre-diabetes: Code(s): R73.03 - Prediabetes Plan: A1c?cony?from?5.6-6.2%;?pre?diabetes?range Encouraged?diet?lower?in?sugars?and?starches,?weight?control?and?exercise Medications: Changed From amlodipine 5 mg PO DAILY 30 days 30 tabs 2RF To amlodipine 5 mg PO DAILY 90 tabs 2RF 90 days Refilled meloxicam 15 mg PO DAILY 30 tabs 2RF 30 days fluticasone propionate 50 mcg/actuation (Flonase Allergy Relief) administer into each nostril 1 spray intranasal Q12H 16 grams 2RF 30 days lisinopril 40 mg PO DAILY 90 tabs 3RF 90 days Coding Level of Care Code Est Pt Level 3 (66409) Diagnoses Essential hypertension I10 Pre-diabetes R73.03
== END 2023-07-10 15:33 | disposition home or self-care (01) ==
PROVIDERS: PCP Family Medicine; Visit Provider Family Medicine
DX: I10 Essential (primary) hypertension (principal); R73.03 Prediabetes
CPT/HCPCS: 99213

== ENCOUNTER → 2023-07-12 13:26 | Outpatient (BNVA) | payer MEDICARE, SELFPAY | PROVIDERS: PCP Family Medicine; Visit Provider Nurse Practitioner Family ==

== ENCOUNTER 2023-07-17 14:27 | Outpatient (AMB) | payer MEDICARE, SELFPAY ==
--- NOTE | 2023-07-17 14:28 | MHC.OFFVIS ---
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 Jordan. He has a past medical history of hypertension. He is being followed up on today via telehealth for his erectile dysfunction and weak urinary stream. Of note, during last office visit approximately 3 months ago penile injection teaching was performed for patient's history of erectile dysfunction with failed oral therapies. In discussion with the patient today he reports he has been able to obtain erections however feels maintaining erections has still been difficult. He reports utilizing 40 units of TriMix as suggested. Recent PSA results reviewed with the patient today. PSA 06/23 2.7. He discusses continuing with weak urinary stream and feels this has been bothersome. Discussed trial of finasteride in obtaining retroperitoneal ultrasound for further assessment evaluation. He otherwise denies urinary urgency, urinary frequency, incontinence, nocturia, hematuria, dysuria, foul smelling urine, flank pain, fever, and or chills. Discussed at length potential causes for erectile dysfunction patient has been experiencing. Previous workup has included labs; PSA 06/22--3.2 testosterone level-- 484. Patient also with a history of bilateral epididymal head cysts versus spermatoceles. The largest of these on the left shows a maximal diameter of 6.8 cm with septations. There is a small right hydrocele. Patient denies testicular/scrotal pain. He otherwise offers no other issues or concerns at this time. [facility] [place] Medical History Hypertension Family History Mother Hypertension Hyperlipidemia No family history of mental disorder Father No family history of mental disorder Hypertension Hyperlipidemia Social History Household Members: Spouse Housing: House Alcohol intake: current Alcohol intake frequency: 3 or more drinks per day Alcohol type: beer Patient Tobacco Use Status: Never used Tobacco e-Cigarette/Vaping Use: Never Used Second Hand Smoke Exposure: No Current occupational status: employed Cognitive needs: No Hearing needs: No Vision needs: No Review of Systems Const All systems reviewed & are unremarkable except as noted in HPI and below Reports as per HPI Eyes Reports no additional complaints ENT Reports no additional complaints Card Reports as per HPI Resp Reports no additional complaints GI Reports no additional complaints Reports as per HPI Neuro Reports no additional complaints Psych Reports no additional complaints Endo Reports no additional complaints Gilberto/Lymph Reports no additional complaints Aller/Immun Reports no additional complaints Physical Exam Const General: cooperative Resp Effort & Inspection: able to speak in complete sentences Psych Attitude: cooperative Thought process: Normal thought process present Thought content: Normal thought content present Insight: Fair insight present (Psych) Judgement: Fair judgement present (Psych) Assessment & Plan Assessment & Plan (1) Weak urinary stream: Code(s): R39.12 - Poor urinary stream (2) Erectile dysfunction: Code(s): N52.9 - Male erectile dysfunction, unspecified Plan Will increase TriMix to 45-50 units PRN as discussed. Discussed at length lifestyle modifications to assist with erectile dysfunction. Start 0.4 mg of Flomax as discussed and prescribed. Will obtain retroperitoneal ultrasound for further assessment evaluation. Recent PSA results reviewed with the patient today; as noted above. Discussed possible initiation of finasteride however will await results of retroperitoneal ultrasound to further assess and evaluate for prostate volume. Discussed possible near future in office cystoscopy for further assessment evaluation if patient continues with weak urinary stream despite alpha blockers. Follow-up in 6-8 weeks with imaging to be completed prior and PVR at next office visit; or sooner with any issues, concerns, and or questions. Orders: Orders US retroperitoneal comp Today R39.12 - Poor urinary stream Medications: New tamsulosin 0.4 mg PO BEDTIME 30 days 30 caps 1RF N40.1 - Benign prostatic hyperplasia with lower urinary tract symptoms, R35.1 - Nocturia Patient Instructions: The patient had an opportunity to ask questions regarding the treatment plan. All questions were answered. Physical exam, labs, and imaging were discussed and reviewed in detail. As well as risks, benefits, and discussion of treatment choices. No major barriers to understanding were identified. The patient expressed understanding and agreement with the above treatment plan. The patient was made aware they should contact our office by phone for worsening of their current condition, the appearance of new symptoms, or with any questions or concerns. Compliance is encouraged with any medications and follow up testing that is ordered. It is a privilege to be allowed the opportunity to participate in? your urological care.? Again, if you have any questions or concerns If you have any questions or concerns please do not hesitate to contact me. The office is [phone]. This note is constructed using voice recognition software. While every effort has been made to ensure accuracy minilab operator errors may have been included. Yours sincerely, JEFFREY Gomez Telehealth Telehealth Location of provider rendering services: practice address Location of patient: address on file Patient Identification confirmed using: Name, : Yes Telehealth method: voice only Patient verbally consented to treatment: Yes Patient verbally consented to billing insurance company: Yes Patient informed of any privacy concerns related to visit: Yes Minutes spent on Phone/Video with Pt.: 20 Coding Level of Care Code Tele Est Pt Level 4 (61433) Diagnoses Weak urinary stream R39.12 Erectile dysfunction N52.9 Time Spent (min) 20
== END 2023-07-17 14:55 | disposition home or self-care (01) ==
LOC: HO.HUSH 14:28
PROVIDERS: PCP Family Medicine; Visit Provider Nurse Practitioner Family
DX: R39.12 Poor urinary stream (principal); N52.9 Male erectile dysfunction, unspecified
CPT/HCPCS: 99442

== ENCOUNTER → 2023-07-17 14:27 | Outpatient (BNVA) | payer MEDICARE, SELFPAY | PROVIDERS: PCP Family Medicine; Visit Provider Nurse Practitioner Family ==

== ENCOUNTER 2023-08-15 13:08 | Outpatient (RCR) | payer MEDICARE, SELFPAY | END 2024-03-06 10:15 | disposition home or self-care (01) | LOC: HO.PTWFD 13:08 | PROVIDERS: PCP Family Medicine; Visit Provider Family Medicine | DX: M62.81 Muscle weakness (generalized) (principal); S46.212A Strain of muscle, fascia and tendon of other parts of biceps, left arm, initial encounter ==

== ENCOUNTER 2023-10-16 14:23 | Outpatient (AMB) | payer MEDICARE, SELFPAY ==
--- NOTE | 2023-10-16 14:32 | MHC.PC.OV ---
Vital Signs 10/16/23 14:34 Height 5 ft 10.5 in Weight 202 lb 2 oz BMI 28.6 BP 122/64 Blood Pressure Location Rt brachial Position Sitting Respiration 15 Pulse 93 Pulse Source Pulse Oximeter Temp 97.7 F Temp Source Temporal Artery Scan Pulse Oximetry (%) 97 Oxygen Delivery Method Room Air Intake Visit Reasons: f/u pre-diabetes Intake Note: Patient staates that all his medications neeed refills. 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 Accompanied by: Self / Same As Patient Allergies No Known Allergies Allergy (Verified 10/16/23 14:49) Medication List - Last Reconciled 10/16/23 by Vinicius Jordan MD amlodipine 5 mg PO DAILY 90 days fluticasone propionate 50 mcg/actuation (Flonase Allergy Relief) 1 spray intranasal Q12H 30 days lisinopril 40 mg PO DAILY 90 days meloxicam 15 mg PO DAILY 30 days tamsulosin 0.4 mg PO BEDTIME 30 days Tobacco use date assessed: 07/10/23 Fall risk assessment: No Falls in past year Last assessed Fall Risk: 10/16/23 Dental Screening Dental Screen Date: 04/05/23 HPI f/u pre-diabetes HPI Details 73 y/o male presents to f/u pre-diabetes. Last A1c 07/10/23 6.2%. Blood pressure today 122/64 93p. [facility] Medical History (Updated 10/16/23 @ 15:17 by Vinicius Jordan MD) Hypertension Surgical History (Updated 10/16/23 @ 14:50 by EMILY Bourne) No pertinent past surgical history Family History Mother Hypertension Hyperlipidemia No family history of mental disorder Father No family history of mental disorder Hypertension Hyperlipidemia Social History Household Members: Spouse Housing: House Alcohol intake: current Alcohol intake frequency: 3 or more drinks per day Alcohol type: beer Patient Tobacco Use Status: Never used Tobacco e-Cigarette/Vaping Use: Never Used Second Hand Smoke Exposure: No service: No Current occupational status: employed 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 Ben Mcallister, Antoinette Machado, Garcia Joyce and colleagues, with an educational agnes from [employer]. Review of Systems Const Denies chills, Denies fatigue, Denies fever(s), Denies headache(s) and Denies weakness ENT Denies dizziness and Denies headache(s) Card Denies dyspnea Resp Denies cough, Denies dyspnea, Denies wheezing and Denies other (shortness of breath) Musc Denies numbness and Denies tingling Neuro Denies dizziness, Denies headache(s), Denies numbness, Denies tingling and Denies weakness Psych Denies anxiety and Denies depression Endo Denies fatigue Aller/Immun Denies wheezing Physical exam (Primary Care) Vital Signs: Last Vital Signs Temp 97.7 F 10/16/23 14:34 Pulse 93 10/16/23 14:34 Resp 15 10/16/23 14:34 BP 122/64 10/16/23 14:34 Pulse Ox 97 10/16/23 14:34 Oxygen Delivery Method Room Air 10/16/23 14:34 BMI result Body Mass Index 28.6 Tobacco/Smoking Status: Tobacco use Status Tobacco use date assessed 07/10/23 10/16/23 14:33 Patient Tobacco Use Status Never used Tobacco 10/16/23 14:33 e-Cigarette/Vaping Use Never Used 10/16/23 14:33 Thrive Assessment: Date of Thrive Assessment Date Thrive assessed 04/05/23 10/16/23 14:33 Const General: well developed; No acute distress Nutritional Appearance: well nourished Orientation/consciousness: patient oriented x3 HENMT Head: Yes normocephalic and Yes atraumatic Eyes General: appearance normal, both eyes and all related structures Pupils: Equal, round and reactive pupils present EOM: EOMs intact bilaterally Resp Effort & Inspection: normal respiratory effort Auscultation: clear to auscultation bilaterally Cardio Rate: regular rate Rhythm: regular rhythm Heart sounds: S1 normal heart sound present, S2 normal heart sound present, no gallops, no murmurs and no rubs Neuro General: patient oriented x3 and gait normal Cranial nerves: Yes Equal, round and reactive pupils present Psych Affect: normal affect Assessment and Plan Assessment & Plan (1) Essential hypertension: Code(s): I10 - Essential (primary) hypertension Plan: Blood?pressure?is?well?controlled.??Goal?is?less?than?140/90 Continue?current?medications (2) Pre-diabetes: Code(s): R73.03 - Prediabetes Plan: A1c?climbed?to?5.8%;?pre?diabetes?range Continue?diet?low?in?sugars?and?starches (3) 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 Will?provide?letter?in?support?of?allowing?him?to?use?a?crossbow Orders: Referrals Urology Referral R39.12 - Poor urinary stream Medications: Refilled fluticasone propionate 50 mcg/actuation (Flonase Allergy Relief) administer into each nostril 1 spray intranasal Q12H 30 days 16 grams 2RF amlodipine 5 mg PO DAILY 90 days 90 tabs 3RF meloxicam 15 mg PO DAILY 30 days 30 tabs 2RF tamsulosin 0.4 mg PO BEDTIME 30 days 30 caps 0RF N40.1 - Benign prostatic hyperplasia with lower urinary tract symptoms, R35.1 - Nocturia lisinopril 40 mg PO DAILY 90 days 90 tabs 3RF Coding Level of Care Code Est Pt Level 4 (29338) Diagnoses Essential hypertension I10 Pre-diabetes R73.03 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
[2023-10-16 14:34] VITALS: BP 122/64; PULSE 93; RESP 15; TEMP 36.5; O2SAT 97; BMI 28.6
== END 2023-10-16 15:13 | disposition home or self-care (01) ==
PROVIDERS: PCP Family Medicine; Visit Provider Family Medicine
DX: I10 Essential (primary) hypertension (principal); R73.03 Prediabetes; M62.522 Muscle wasting and atrophy, not elsewhere classified, left upper arm; M21.242 Flexion deformity, left finger joints
CPT/HCPCS: 99214

== ENCOUNTER 2024-01-02 14:39 | Outpatient (REF) | payer MEDICARE, SELFPAY ==
--- NOTE | ~2024-01-02 | US_ITS ---
EXAMINATION: US RETROPERITONEAL COMPLETE (RENAL) CLINICAL INFORMATION: Poor urinary stream. COMPARISON: None available. TECHNIQUE: Real-time imaging of the kidneys and bladder. FINDINGS: RIGHT KIDNEY: 12.1 x 5.0 x 5.5 cm (SAG x AP x TRV). There is a 3.9 cm exophytic anechoic lesion in the upper pole without septations or flow on color Doppler interrogation. The kidney is normal in size, contour, and echogenicity. Renal cortical thickness is normal. No renal calculi or hydronephrosis. Normal flow on color Doppler interrogation of the renal hilum. LEFT KIDNEY: 9.9 x 5.4 x 5.6 cm (SAG x AP x TRV). There is a 1.6 cm exophytic anechoic lesion in the lower pole without septations or flow on color Doppler interrogation The kidney is normal in size, contour, and echogenicity. Renal cortical thickness is normal. No renal calculi or hydronephrosis. Normal flow on color Doppler interrogation of the renal hilum. BLADDER: Well distended and normal. Bilateral ureteral jets are demonstrated. Prevoid bladder volume is 251 mL. Postvoid bladder volume is 139 mL. Prostate gland measures 5 cm in maximal diameter and, volume 39 mL, protruding upon the urinary bladder floor. US/US retroperitoneal comp IMPRESSION: No hydronephrosis. Simple renal cysts, bilaterally Residual urine volume in a post void image of the bladder. Concerning for retention.. Prominent prostate gland. Consider benign prostate hyperplasia in the correct clinical settings.. Electronically signed by: Ricki Carias MD 02/06/2024 11:22 AM EST
== END 2024-01-02 14:40 | disposition home or self-care (01) ==
LOC: HO.US 14:39
PROVIDERS: PCP Family Medicine; Visit Provider Nurse Practitioner Family
DX: R39.12 Poor urinary stream (principal)
CPT/HCPCS: 76770

== ENCOUNTER → 2024-01-02 14:41 | Outpatient (BNV) | payer MEDICARE, SELFPAY | PROVIDERS: PCP Family Medicine; Visit Provider Radiology Diagnostic Radiology | DX: R39.12 Poor urinary stream (principal) | CPT/HCPCS: 76770 ==

== ENCOUNTER 2024-01-18 13:32 | Outpatient (AMB) | payer MEDICARE, SELFPAY ==
--- NOTE | 2024-01-18 13:49 | A.OFFPC_ITS ---
Vital Signs 01/18/24 13:50 Height 5 ft 10.5 in Weight 206 lb 6 oz BMI 29.2 BP 113/55 L Blood Pressure Location Lt brachial Position Sitting Respiration 14 Pulse 85 Pulse Source Pulse Oximeter Temp 98.2 F Temp Source Temporal Artery Scan Pulse Oximetry (%) 96 Oxygen Delivery Method Room Air Intake Visit Reasons: f/u hypertension, pre-diabetes Intake Note: f/u htn and DM Allergies No Known Allergies Allergy (Verified 01/18/24 13:50) Medication List - Last Reconciled 01/18/24 by Vinicius Jordan MD amlodipine 5 mg PO DAILY 90 days fluticasone propionate 50 mcg/actuation (Flonase Allergy Relief) 1 spray intranasal Q12H 30 days lisinopril 40 mg PO DAILY 90 days meloxicam 15 mg PO DAILY 30 days tamsulosin 0.4 mg PO BEDTIME 30 days Tobacco use date assessed: 07/10/23 Dental Screening Dental Screen Date: 04/05/23 HPI f/u hypertension, pre-diabetes HPI Details 73 male presents to f/u hypertension, pr e-diabetes. Blood pressure today 113/55, 85p. He is on amlodipine 5mg, lisinopril 40mg daily. A1c today 01/18/24 is HPI Comments History of Present Illness Details Documentation assistance for Vinicius Jordan MD, was provided by Devon Pizarro, Medical Imaging Technician on 01/18/2024 at 2:00 PM EST. I, Dr. Jordan, have read, observed, and verified documentation. [facility] Medical History (Updated 10/16/23 @ 15:17 by Vinicius Jordan MD) Hypertension Surgical History (Updated 10/16/23 @ 14:50 by EMILY Bourne) No pertinent past surgical history Family History Mother Hypertension Hyperlipidemia No family history of mental disorder Father No family history of mental disorder Hypertension Hyperlipidemia Social History Household Members: Spouse Housing: House Alcohol intake: current Alcohol intake frequency: 3 or more drinks per day Alcohol type: beer Patient Tobacco Use Status: Never used Tobacco e-Cigarette/Vaping Use: Never Used Second Hand Smoke Exposure: No service: No Current occupational status: employed 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 1. Little interest or pleasure in doing things: not at all 3. Trouble falling or staying asleep, or sleeping too much: not at all 4. Feeling tired or having little energy: not at all 5. Poor appetite or overeating: not at all 6. Feeling bad about yourself - or that you are a failure or have let yourself or your family down: not at all 7. Trouble concentrating on things, such as reading the newspaper or watching television: not at all 8. Moving or speaking so slowly that other people could have noticed. Or the opposite - being so fidgety or restless that you have been moving around a lot more than usual: not at all 9. Thoughts that you would be better off or of hurting yourself in some way: not at all Source: Developed by Drs. Ben Mcallister, Antoinette Machado, Garcia Joyce and colleagues, with an educational agnes from [employer]. Thrive Questionnaire Date Thrive assessed: 04/05/23 I am a: Patient What is your living situation today?: I have a steady place to live Within the past 12 months, did the food you bought not last and you didn't have the money to get more?: Never true Within the past 12 months, did you worry whether your food would run out before you got money to buy more?: Never true Do you have trouble paying for medicines?: No Do you have trouble getting transportation to medical appointments?: No Do you have trouble paying your heating and electricity bill?: No Do you have trouble taking care of your child, family member or friend?: No Do you have trouble with day-to-day activities such as bathing, preparing meals, shopping, managing finances, etc.?: No Are you currently unemployed and looking for a job?: No Are you interested in more education?: No Please select the resources that you would like help with: None Currently or been in a relationship where the following occur: No concerns reported THRIVE Score: 0 AUDIT C Alcohol Use Questionnaire (AUDIT-C) 1. How often do you have a drink containing alcohol?: Never Total Score: 0 YASMINE-7 AMB Questionnaire YASMINE-7 Date YASMINE - 7 assessed: 04/05/23 Feeling nervous, anxious, or on edge: 0 = Not at all Not being able to stop or control worryin = Not at all Worrying too much about different things: 0 = Not at all Trouble relaxin = Not at all Being so restless that it is hard to sit still: 0 = Not at all Becoming easily annoyed or irritable: 0 = Not at all Feeling afraid as if something awful might happen: 0 = Not at all Total YASMINE-7 score (0-4 normal; 5-9 mild; 10-14 moderate; 15-21 severe): 0 Source: Developed by Drs. Ben Mcallister, Antoinette Machado, Gracia Joyce and colleagues, with an educational agnes from [employer]. Review of Systems Const Denies chills, Denies fatigue, Denies fever(s), Denies headache(s) and Denies weakness ENT Denies dizziness and Denies headache(s) Card Denies chest pain, Denies lightheadedness, Denies dyspnea and Denies other (Palpitations) Resp Denies cough, Denies dyspnea, Denies wheezing and Denies other ( shortness of breath) Musc Denies numbness and Denies tingling Neuro Denies dizziness, Denies headache(s), Denies numbness, Denies tingling, Denies paresthesias and Denies weakness Psych Denies anxiety and Denies depression Endo Denies fatigue Aller/Immun Denies wheezing Physical exam (Primary Care) Vital Signs: Last Vital Signs Temp 98.2 F 01/18/24 13:50 Pulse 85 01/18/24 13:50 Resp 14 01/18/24 13:50 BP 113/55 L 01/18/24 13:50 Pulse Ox 96 01/18/24 13:50 Oxygen Delivery Method Room Air 01/18/24 13:50 BMI result Body Mass Index 29.2 Tobacco/Smoking Status: Tobacco use Status Tobacco use date assessed 07/10/23 01/18/24 13:52 Patient Tobacco Use Status Never used Tobacco 01/18/24 13:52 e-Cigarette/Vaping Use Never Used 01/18/24 13:52 Thrive Assessment: Date of Thrive Assessment Date Thrive assessed 04/05/23 01/18/24 13:52 Currently or been in a relationship where the following occur: No concerns reported Const General: no acute distress and well developed Nutritional Appearance: well nourished Orientation/consciousness: patient oriented x3 HENMT Head: Yes normocephalic and Yes atraumatic Eyes General: appearance normal, both eyes and all related structures Pupils: Equal, round and reactive pupils present EOM: EOMs intact bilaterally Resp Effort & Inspection: normal respiratory effort Auscultation: clear to auscultation bilaterally Cardio Rate: regular rate Rhythm: regular rhythm Heart sounds: S1 normal heart sound present, S2 normal heart sound present, no gallops, no murmurs and no rubs Neuro General: patient oriented x3 and gait normal Cranial nerves: Yes Equal, round and reactive pupils present Psych Affect: normal affect Coding Level of Care Code Est Pt Level 4 (27511) Diagnoses Essential hypertension I10 Pre-diabetes R73.03 Weak urinary stream R39.12 Assessment & Plan Assessment & Plan (1) Essential hypertension: Code(s): I10 - Essential (primary) hypertension Category: Medical Plan: Pressure?is?well?controlled.??Goal?is?less?than?140/90 Continue?current?medications (2) Pre-diabetes: Code(s): R73.03 - Prediabetes Category: Medical Plan: A1c?has?improved?again?and?is?now?at?5.7%; early?pre?diabetes?range Continue?working?on?a?diet?low?in?sugars?and?starches Continue?exercise?and?weight?loss (3) Weak urinary stream: Code(s): R39.12 - Poor urinary stream Category: Medical Plan: Now?followed?by?Urology. He?has?had?a?retroperitoneal?ultrasound?but?results?are?pending He?has?been?using?tamsulosin?which?has?been?helping.??I?have?refilled?this?today . Medications: Refilled tamsulosin 0.4 mg PO BEDTIME 30 days 30 caps 4RF N40.1 - Benign prostatic hyperplasia with lower urinary tract symptoms, R35.1 - Nocturia
[2024-01-18 13:50] VITALS: BP 113/55; PULSE 85; RESP 14; TEMP 36.8; O2SAT 96; BMI 29.2
== END 2024-01-18 14:04 | disposition home or self-care (01) ==
PROVIDERS: PCP Family Medicine; Visit Provider Family Medicine
DX: I10 Essential (primary) hypertension (principal); R73.03 Prediabetes; R39.12 Poor urinary stream

== ENCOUNTER → 2024-01-18 13:32 | Outpatient (BNVA) | payer MEDICARE, SELFPAY | PROVIDERS: PCP Family Medicine; Visit Provider Family Medicine | DX: I10 Essential (primary) hypertension (principal); R73.03 Prediabetes; N40.1 Benign prostatic hyperplasia with lower urinary tract symptoms; R39.12 Poor urinary stream; R35.1 Nocturia; Z79.899 Other long term (current) drug therapy | CPT/HCPCS: 99212 ==

== ENCOUNTER 2024-02-05 13:33 | Outpatient (AMB) | payer MEDICARE, SELFPAY ==
--- NOTE | 2024-02-05 13:39 | MHC.OFFVIS ---
Intake Visit Reasons: US follow up(set) Intake Note: Patient is present for US F/U Urology Medication:TAMSULOSIN Antibiotic Allergy:NONE Blood Thinner:NONE Supervisor Sintering Plant Required: No Allergies No Known Allergies Allergy (Verified 02/05/24 19:39) Medication List - Last Reconciled 02/05/24 by EDU Gomez- amlodipine 5 mg PO DAILY 90 days finasteride 5 mg PO DAILY 90 days fluticasone propionate 50 mcg/actuation (Flonase Allergy Relief) 1 spray intranasal Q12H 30 days lisinopril 40 mg PO DAILY 90 days meloxicam 15 mg PO DAILY 30 days tamsulosin 0.4 mg PO BEDTIME 30 days HPI Comments Details: Thanh is a pleasant 73-year-old male patient of Dr. Jordan. He has a past medical history of hypertension. He presents to the office today for follow-up of his erectile dysfunction and weak urinary stream. In discussion with the patient today he reports to be doing and feeling well. Reports noting somewhat improvement in weak urinary stream with 0.4 mg of Flomax daily. Recent retroperitoneal ultrasound results reviewed with the patient today. Bilateral kidneys with simple renal cysts. No hydronephrosis noted bilaterally. The bladder is well distended and normal. Bladder jets are demonstrated. Pre void bladder volume is proximally 250 mL. Postvoid bladder volume is approximately 140 mL. Prostate gland measures 5 cm in maximal diameter and a volume of 40 mL protruding upon the urinary bladder floor. We discussed mild prostatomegaly noted on recent imaging. We discussed further treatment options. PSAs are as follows: PSA: 06/22 3.2, 06/23 2.7 We discuss trial of finasteride. He reports that although recommendations were made for increase in TriMix therapy for his erectile dysfunction during last office visit approximately 6 months ago he has not increase the dosing however he does plan to. We discussed increasing to 45 units. We also discussed further treatment options of erectile dysfunction to include penile pump and or penile prosthesis. Risks and benefits of these interventions were discussed. Patient has previously trialed daily dosing of tadalafil with p.r.n. dosing as well as p.r.n. Viagra with no improvement in maintaining his erections. He otherwise denies urinary urgency, urinary frequency, incontinence, nocturia, hematuria, dysuria, foul smelling urine, flank pain, fever, and or chills. Previous workup has included testosterone free and total 06/23 testosterone 484 free testosterone 73.6. Patient also with a history of bilateral epididymal head cysts versus spermatoceles. The largest of these on the left shows a maximal diameter of 6.8 cm with septations. There is a small right hydrocele. Patient denies testicular/scrotal pain. He otherwise offers no other issues or concerns at this time. [facility] Medical History Hypertension Surgical History (Updated 10/16/23 @ 14:50 by EMILY Bourne) No pertinent past surgical history Family History Mother Hypertension Hyperlipidemia No family history of mental disorder Father No family history of mental disorder Hypertension Hyperlipidemia Social History Household Members: Spouse Housing: House Alcohol intake: current Alcohol intake frequency: 3 or more drinks per day Alcohol type: beer Patient Tobacco Use Status: Never used Tobacco e-Cigarette/Vaping Use: Never Used Second Hand Smoke Exposure: No service: No Current occupational status: employed Current occupation: [employer] Cognitive needs: No Hearing needs: No Vision needs: No Review of Systems Const All systems reviewed & are unremarkable except as noted in HPI and below Reports as per HPI Eyes Reports no additional complaints ENT Reports no additional complaints Card Reports as per HPI Resp Reports no additional complaints GI Reports no additional complaints Reports as per HPI Neuro Reports no additional complaints Psych Reports no additional complaints Endo Reports no additional complaints Gilberto/Lymph Reports no additional complaints Aller/Immun Reports no additional complaints Physical Exam Const General: cooperative, healthy appearing, comfortable, no acute distress, well developed, alert and awake Orientation/consciousness: patient oriented x3 Limitations: no limitations HEENT Head: Yes normal to inspection, Yes normocephalic and Yes atraumatic Ears: hearing grossly normal bilaterally Eyes General: appearance normal, both eyes and all related structures Neck Neck: Yes normal visual inspection and Yes trachea midline Chest Chest palpation & inspection: normal inspection of the chest Resp Effort & Inspection: normal respiratory effort and able to speak in complete sentences Cardio Rate: regular rate GI Inspection: Yes normal to inspection General: Yes no CVA tenderness Back/Spine/Pelvis Back: no CVA tenderness Skin General skin exam: no rashes or lesions noted Neuro General: patient oriented x3 Extrem General: Yes normal to inspection Psych Appearance: grossly normal and well kempt Mental Status: mental status grossly normal Speech and movement: Normal speech and movement present and Clear speech present Affect: normal affect Attitude: cooperative Thought process: Normal thought process present Thought content: Normal thought content present Insight: Good insight present (Psych) Judgement: Good judgement present (Psych) Results AMB Urinalysis, Automated UA Leukoctes 0 Janet/uL Last Edit by Ness Babin [facility] on 02/05/24 13:53 UA Nitrite Negative Last Edit by Ness Babin [facility] on 02/05/24 13:53 UA Urobilinogen 0.2 mg/dL Last Edit by Ness Babin [facility] on 02/05/24 13:53 UA Protein 0 mg/dL Last Edit by Ness Babin [facility] on 02/05/24 13:53 UA pH 6.0 Last Edit by Ness Babin [facility] on 02/05/24 13:53 UA Blood 0 Carlos/uL Last Edit by Ness Babin [facility] on 02/05/24 13:53 UA Specific [place] 1.020 Last Edit by Ness Babin [facility] on 02/05/24 13:53 UA Ketone Negative Last Edit by Ness Babin [facility] on 02/05/24 13:53 UA Bilirubin 0 mg/dL Last Edit by Ness Babin [facility] on 02/05/24 13:53 UA Glucose 0 mg/dL Last Edit by Ness Babin [facility] on 02/05/24 13:53 Results Reviewed Results Reviewed: Laboratory Last Values Urine pH (Auto) 6.0 02/05/24 13:52 Specific [place] (Auto) 1.020 02/05/24 13:52 Urine Protein (Auto) 0 mg/dL 02/05/24 13:52 Glucose (UA)(Auto) 0 mg/dL 02/05/24 13:52 Urine Ketones (Auto) Negative 02/05/24 13:52 Urine Blood (Auto) 0 Carlos/uL 02/05/24 13:52 Urine Nitrite (Auto) Negative 02/05/24 13:52 Urine Bilirubin (Auto) 0 mg/dL 02/05/24 13:52 Urine Urobilinogen (Auto) 0.2 mg/dL 02/05/24 13:52 Leukocyte Esterase (Auto) 0 Janet/uL 02/05/24 13:52 Date of Service: 01/02/24 EXAMINATION: US RETROPERITONEAL COMPLETE (RENAL) FINDINGS: RIGHT KIDNEY: 12.1 x 5.0 x 5.5 cm (SAG x AP x TRV). There is a 3.9 cm exophytic anechoic lesion in the upper pole without septations or flow on color Doppler interrogation. The kidney is normal in size, contour, and echogenicity. Renal cortical thickness is normal. No renal calculi or hydronephrosis. Normal flow on color Doppler interrogation of the renal hilum. LEFT KIDNEY: 9.9 x 5.4 x 5.6 cm (SAG x AP x TRV). There is a 1.6 cm exophytic anechoic lesion in the lower pole without septations or flow on color Doppler interrogation The kidney is normal in size, contour, and echogenicity. Renal cortical thickness is normal. No renal calculi or hydronephrosis. Normal flow on color Doppler interrogation of the renal hilum. BLADDER: Well distended and normal. Bilateral ureteral jets are demonstrated. Prevoid bladder volume is 251 mL. Postvoid bladder volume is 139 mL. Prostate gland measures 5 cm in maximal diameter and, volume 39 mL, protruding upon the urinary bladder floor. IMPRESSION: No hydronephrosis. Simple renal cysts, bilaterally Residual urine volume in a post void image of the bladder. Concerning for retention.. Prominent prostate gland. Consider benign prostate hyperplasia in the correct clinical settings.. Assessment & Plan Assessment & Plan (1) BPH (benign prostatic hyperplasia): Code(s): N40.0 - Benign prostatic hyperplasia without lower urinary tract symptoms Category: Medical (2) Erectile dysfunction: Code(s): N52.9 - Male erectile dysfunction, unspecified Category: Medical (3) Hydrocele: Code(s): N43.3 - Hydrocele, unspecified Category: Medical (4) Weak urinary stream: Code(s): R39.12 - Poor urinary stream Category: Medical Plan In office urinalysis results reviewed with the patient today; as noted above. Continue Flomax as discussed and prescribed. Start finasteride as discussed and prescribed. We discussed at length potential causes of weak urinary stream and erectile dysfunction. We discussed at length further treatment options of erectile dysfunction and risks and benefits of these interventions. Will increase TriMix to 45 units. Recent retroperitoneal ultrasound results reviewed with the patient today; as noted above. Will obtain PSA in 4 months Follow-up in 4 months with PSA and PVR to be completed prior; or sooner with any issues, concerns, and or questions. Orders: Orders AMB Urinalysis Automated 02/05/24 Z13.9 - Encounter for screening, unspecified Prostate Specific Antigen 4 Months N40.0 - Benign prostatic hyperplasia without lower urinary tract symptoms, Z12.5 - Encounter for screening for malignant neoplasm of prostate Medications: New finasteride 5 mg PO DAILY 90 tabs 1RF 90 days N32.0 - Bladder-neck obstruction Patient Instructions: The patient had an opportunity to ask questions regarding the treatment plan. All questions were answered. Physical exam, labs, and imaging were discussed and reviewed in detail. As well as risks, benefits, and discussion of treatment choices. No major barriers to understanding were identified. The patient expressed understanding and agreement with the above treatment plan. The patient was made aware they should contact our office by phone for worsening of their current condition, the appearance of new symptoms, or with any questions or concerns. Compliance is encouraged with any medications and follow up testing that is ordered. It is a privilege to be allowed the opportunity to participate in? your urological care.? Again, if you have any questions or concerns If you have any questions or concerns please do not hesitate to contact me. The office is [phone]. This note is constructed using voice recognition software. While every effort has been made to ensure accuracy deck worker errors may have been included. Yours sincerely, JEFFREY Gomez Coding Level of Care Code Est Pt Level 4 (11219) Diagnoses BPH (benign prostatic hyperplasia) N40.0 Erectile dysfunction N52.9 Hydrocele N43.3 Weak urinary stream R39.12
== END 2024-02-05 14:19 | disposition home or self-care (01) ==
LOC: HO.HUSH 13:34
PROVIDERS: PCP Family Medicine; Visit Provider Nurse Practitioner Family
DX: N40.0 Benign prostatic hyperplasia without lower urinary tract symptoms (principal); N52.9 Male erectile dysfunction, unspecified; N43.3 Hydrocele, unspecified; R39.12 Poor urinary stream
CPT/HCPCS: 99214

== ENCOUNTER → 2024-02-05 13:33 | Outpatient (BNVA) | payer MEDICARE, SELFPAY | PROVIDERS: PCP Family Medicine; Visit Provider Nurse Practitioner Family | DX: N52.9 Male erectile dysfunction, unspecified (principal); R39.12 Poor urinary stream; N40.0 Benign prostatic hyperplasia without lower urinary tract symptoms; N43.3 Hydrocele, unspecified | CPT/HCPCS: 81003; 99212 ==

== ENCOUNTER → 2024-02-21 11:39 | Outpatient (BNVA) | payer MEDICARE, SELFPAY | PROVIDERS: PCP Family Medicine; Visit Provider Nurse Practitioner Family ==

== ENCOUNTER → 2024-02-21 11:39 | Outpatient (BNVA) | payer MEDICARE, SELFPAY | PROVIDERS: PCP Family Medicine; Visit Provider Nurse Practitioner Family ==

== ENCOUNTER 2024-07-25 11:09 | Outpatient (REF) | payer MEDICARE, SELFPAY ==
[2024-07-25 14:43] LABS: Prostate Specific Antigen 1.06 ng/mL (<0.05-4.0)
== END 2024-07-25 11:10 | disposition home or self-care (01) ==
LOC: HO.WFDLDS 11:09
PROVIDERS: Visit Provider Nurse Practitioner Family
DX: N40.0 Benign prostatic hyperplasia without lower urinary tract symptoms (principal); Z12.5 Encounter for screening for malignant neoplasm of prostate
CPT/HCPCS: 36415; 84153

== ENCOUNTER 2024-10-27 14:15 | Outpatient (AMB) | payer MEDICARE, SELFPAY ==
--- NOTE | 2024-10-27 14:26 | MHC.OFFVIS ---
Intake Visit Reasons: 4m/PSA/PVR(set) Intake Note: Patient is present for 4M/PSA/PVR Urology Medication:TAMSULOSIN,FINASTERIDE Antibiotic Allergy:NONE Blood Thinner:NONE TODAY'S PVR:0ML'S Assistant Fitness Manager Required: No Allergies No Known Allergies Allergy (Verified 10/27/24 15:19) Medication List - Last Reconciled 10/27/24 by EDU Gomez- finasteride 5 mg PO DAILY 90 days lisinopril 40 mg PO DAILY 90 days meloxicam 15 mg PO DAILY 30 days tamsulosin 0.4 mg PO BEDTIME 90 days HPI Comments Details: Thanh is a pleasant 74-year-old male patient of Dr. Jordan. He has a past medical history of hypertension. He presents to the office today for follow-up of his erectile dysfunction and weak urinary stream. In discussion with the patient today he reports to be doing and feeling well. He reports compliance with tamsulosin and finasteride as prescribed. He does feel improvement in weak urinary stream since initiation of urological medications. He does however continue to report intermittent episodes of nocturia however describes these episodes as infrequent. In office urinalysis results reviewed with the patient today. PVR 0 mL. Previous workup has included a retroperitoneal ultrasound 01/23 noting bilateral kidneys with simple renal cysts. No hydronephrosis noted bilaterally. The bladder is well distended and normal. Bladder jets are demonstrated. Pre void bladder volume is proximally 250 mL. Postvoid bladder volume is approximately 140 mL. Prostate gland measures 5 cm in maximal diameter and a volume of 40 mL protruding upon the urinary bladder floor. Recent PSA results were reviewed with the patient today as noted and trended below: PSA: 06/22 3.2, 06/23 2.7, 07/25 1.1 He continues to manage his erectile dysfunction with TriMix therapy. He does discuss his reluctancy and worry as he does not want to experience priapism. We did review risks and benefits as well as educational information regarding TriMix therapy. All questions were answered. He has previously trialed oral therapy of tadalafil as well as Viagra in the past with no improvement in his ED. He denies urinary urgency, urinary frequency, incontinence, hematuria, dysuria, foul smelling urine, flank pain, fever, and or chills. Previous workup has included testosterone free and total 06/23 testosterone 484 free testosterone 73.6. Patient also with a history of bilateral epididymal head cysts versus spermatoceles. The largest of these on the left shows a maximal diameter of 6.8 cm with septations. There is a small right hydrocele. Patient denies testicular/scrotal pain. He otherwise offers no other issues or concerns at this time. [facility] Medical History Hypertension Surgical History (Updated 10/16/23 @ 14:50 by EMILY Bourne) No pertinent past surgical history Family History Mother Hypertension Hyperlipidemia No family history of mental disorder Father No family history of mental disorder Hypertension Hyperlipidemia Social History Household Members: Spouse Housing: House Alcohol intake: current Alcohol intake frequency: 3 or more drinks per day Alcohol type: beer Patient Tobacco Use Status: Never used Tobacco e-Cigarette/Vaping Use: Never Used Second Hand Smoke Exposure: No service: No Current occupational status: employed 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 Cognitive needs: No Hearing needs: No Vision needs: No Review of Systems Const All systems reviewed & are unremarkable except as noted in HPI and below Reports as per HPI Eyes Reports no additional complaints ENT Reports no additional complaints Card Reports as per HPI Resp Reports no additional complaints GI Reports no additional complaints Reports as per HPI Neuro Reports no additional complaints Psych Reports no additional complaints Endo Reports no additional complaints Gilberto/Lymph Reports no additional complaints Aller/Immun Reports no additional complaints Physical Exam Const General: cooperative, healthy appearing, comfortable, no acute distress, well developed, alert and awake Orientation/consciousness: patient oriented x3 Limitations: no limitations HEENT Head: Yes normal to inspection, Yes normocephalic and Yes atraumatic Ears: hearing grossly normal bilaterally Eyes General: appearance normal, both eyes and all related structures Neck Neck: Yes normal visual inspection and Yes trachea midline Chest Chest palpation & inspection: normal inspection of the chest Resp Effort & Inspection: normal respiratory effort and able to speak in complete sentences Cardio Rate: regular rate GI Inspection: Yes normal to inspection General: Yes no CVA tenderness Back/Spine/Pelvis Back: no CVA tenderness Skin General skin exam: no rashes or lesions noted Neuro General: patient oriented x3 Extrem General: Yes normal to inspection Psych Appearance: grossly normal and well kempt Mental Status: mental status grossly normal Speech and movement: Normal speech and movement present and Clear speech present Affect: normal affect Attitude: cooperative Thought process: Normal thought process present Thought content: Normal thought content present Insight: Fair insight present (Psych) Judgement: Fair judgement present (Psych) Office Procedures Post Void Residual Post Residual Void Post Void Residual (PVR): 0 [id number] Void Residual by ultrasound Assessment & Plan Assessment & Plan (1) Weak urinary stream: Code(s): R39.12 - Poor urinary stream Category: Medical (2) BPH (benign prostatic hyperplasia): Code(s): N40.0 - Benign prostatic hyperplasia without lower urinary tract symptoms Category: Medical (3) Decreased libido: Code(s): R68.82 - Decreased libido Category: Medical (4) Erectile dysfunction: Code(s): N52.9 - Male erectile dysfunction, unspecified Category: Medical Plan In office urinalysis results reviewed with the patient today; as noted above. PVR 0 mL. Recent PSA results reviewed with the patient today; as noted above. We did review TriMix therapy information provided. All questions were answered. We did discuss limiting fluids 2-3 hours prior to bed to decrease episodes of intermittent nocturia patient is experiencing. Continue Flomax and finasteride. We did discussed lifestyle modifications to assist with ED as well as overall health and well-being. Follow-up in 6 months with PVR; or sooner with any issues, concerns, and or questions. Patient Instructions: The patient had an opportunity to ask questions regarding the treatment plan. All questions were answered. Physical exam, labs, and imaging were discussed and reviewed in detail. As well as risks, benefits, and discussion of treatment choices. No major barriers to understanding were identified. The patient expressed understanding and agreement with the above treatment plan. The patient was made aware they should contact our office by phone for worsening of their current condition, the appearance of new symptoms, or with any questions or concerns. Compliance is encouraged with any medications and follow up testing that is ordered. It is a privilege to be allowed the opportunity to participate in? your urological care.? Again, if you have any questions or concerns If you have any questions or concerns please do not hesitate to contact me. The office is [phone]. This note is constructed using voice recognition software. While every effort has been made to ensure accuracy puppy walker errors may have been included. Yours sincerely, JEFFREY Gomez Coding Level of Care Code Est Pt Level 3 (64579) Complex EM visit Add On G2211 Diagnoses Weak urinary stream R39.12 BPH (benign prostatic hyperplasia) N40.0 Decreased libido R68.82 Erectile dysfunction N52.9 CPT Codes Post Residual Void - PVR CPT Code: 35723-Fwnn Void Residual by ultrasound ([id number])
== END 2024-10-27 15:12 | disposition home or self-care (01) ==
LOC: HO.HUSH 14:15
PROVIDERS: PCP Family Medicine; Visit Provider Nurse Practitioner Family
DX: R39.12 Poor urinary stream (principal); N40.0 Benign prostatic hyperplasia without lower urinary tract symptoms; R68.82 Decreased libido; N52.9 Male erectile dysfunction, unspecified; Z13.9 Encounter for screening, unspecified
CPT/HCPCS: 99213; G2211

== ENCOUNTER → 2024-10-27 14:15 | Outpatient (BNVA) | payer MEDICARE, SELFPAY | PROVIDERS: PCP Family Medicine; Visit Provider Nurse Practitioner Family | DX: R39.12 Poor urinary stream (principal); N40.0 Benign prostatic hyperplasia without lower urinary tract symptoms; R68.82 Decreased libido; N52.9 Male erectile dysfunction, unspecified | CPT/HCPCS: 51798; 81003; 99212 ==

== ENCOUNTER 2024-11-17 13:00 | Outpatient (REF) | payer MEDICARE, SELFPAY ==
[2024-11-17 18:19] LABS: Hematocrit 39.3 % (42.0-52.0); Hemoglobin 13.2 g/dl (14.0-18.0); Mean Corpuscular HGB Conc 33.6 g/dl (31.0-36.0); Mean Corpuscular Hemoglobin 32.1 pg (27.0-33.0); Mean Corpuscular Volume 95.6 fL (80.0-98.0); NRBC Abs Auto 0.000 X10*3/uL (0.0-0.012); NRBC Pct Auto 0.0 /100WBC (0.0-0.2); Platelet Count 269 X10*3/uL (160-400); Red Blood Count 4.11 X10*6/uL (4.60-5.80); White Blood Count 6.0 X10*3/uL (4.8-10.8)
[2024-11-17 18:46] LABS: Microalbum/Creatinine Ratio Ur 7.5 ug/mg cr (<30)
[2024-11-17 18:47] LABS: Alanine Aminotransferase 31 U/L (0-40); Albumin Level 4.4 g/dL (3.5-5.0); Alkaline Phosphatase 76 U/L (39-117); Anion Gap 12 (12-20); Aspartate Amino Transferase 31 U/L (5-37); Blood Urea Nitrogen 19 mg/dL (9-16); Calcium 9.2 mg/dL (8.4-10.2); Carbon Dioxide 25 mmol/L (22-29); Chloride 108 mmol/L (96-108); Cholesterol 222 mg/dL (<200); Estimated Glomerular Filt Rate > 60; HDL Cholesterol 71 mg/dL (>40); Potassium 4.5 mmol/L (3.3-5.1); Sodium 140 mmol/L (135-145); Total Protein 6.6 g/dL (6.5-8.0); Triglycerides 99 mg/dL (<150)
[2024-11-17 19:05] LABS: Folate 9.9 ng/mL (> or = 4.0); Vitamin B12 < 148 pg/mL (200-900)
[2024-11-18 08:29] LABS: HBS Num1 0.00 mIU/mL (0-7.99); HBc Num1 0.09 S/CO (0.00-0.79); HBsAGNum1 0.49 S/CO (0.00-0.99); HIV Num 1 0.04 S/CO (0.00-0.99); Hepatitis A Antibody IgM 0.36 Index (0-0.79); Hepatitis B Surface Antigen Negative (Negative); ~HepC Num1 0.08 S/CO (0.00-0.79); ~Hepatitis A Antibody IgM Nonreactive (Nonreactive); ~Hepatitis B Surface Antibody NONREACTIVE (Nonreactive); ~Hepatitis C Antibody Nonreactive (Nonreactive)
== END 2024-11-17 13:01 | disposition home or self-care (01) ==
LOC: HO.WFDLDS 13:00
PROVIDERS: PCP Family Medicine; Visit Provider Nurse Practitioner Family
DX: Z00.00 Encounter for general adult medical examination without abnormal findings (principal); Z78.9 Other specified health status; I10 Essential (primary) hypertension; E78.2 Mixed hyperlipidemia; R73.03 Prediabetes; Z12.11 Encounter for screening for malignant neoplasm of colon; N40.1 Benign prostatic hyperplasia with lower urinary tract symptoms; N52.9 Male erectile dysfunction, unspecified; Z28.21 Immunization not carried out because of patient refusal; Z66 Do not resuscitate; Z71.89 Other specified counseling
CPT/HCPCS: 36415; 80053; 80061; 82043; 82306; 82570; 82607; 82746; 83036; 84443; 85027; 86704; 86706; 86709; 86803; 87340; 87389; 93005; 96127; 99212

== ENCOUNTER 2024-11-17 13:00 | Outpatient (AMB) | payer MEDICARE, SELFPAY ==
--- NOTE | 2024-11-17 13:25 | MHC.PC.OV ---
Intake Visit Reasons: MAWV with f/u labs & health maint. -see comments Allergies No Known Allergies Allergy (Verified 10/27/24 15:19) Tobacco use date assessed: 07/10/23 Dental Screening Dental Screen Date: 04/05/23 [facility] Medical History Hypertension Surgical History (Updated 10/16/23 @ 14:50 by EMILY Bourne) No pertinent past surgical history Family History Mother Hypertension Hyperlipidemia No family history of mental disorder Father No family history of mental disorder Hypertension Hyperlipidemia Social History Household Members: Spouse Housing: House Alcohol intake: current Alcohol intake frequency: 3 or more drinks per day Alcohol type: beer Patient Tobacco Use Status: Never used Tobacco e-Cigarette/Vaping Use: Never Used Second Hand Smoke Exposure: No service: No Current occupational status: employed 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 Cognitive needs: No Hearing needs: No Vision needs: No Questionnaire Thrive Questionnaire Date Thrive assessed: 01/18/24 I am a: Patient What is your living situation today?: I have a steady place to live Within the past 12 months, did the food you bought not last and you didn't have the money to get more?: Never true Within the past 12 months, did you worry whether your food would run out before you got money to buy more?: Never true Do you have trouble paying for medicines?: No Do you have trouble getting transportation to medical appointments?: No Do you have trouble paying your heating and electricity bill?: No Do you have trouble taking care of your child, family member or friend?: No Do you have trouble with day-to-day activities such as bathing, preparing meals, shopping, managing finances, etc.?: No Are you currently unemployed and looking for a job?: No Are you interested in more education?: No Please select the resources that you would like help with: None Currently or been in a relationship where the following occur: No concerns reported THRIVE Score: 0 YASMINE-7 AMB Questionnaire YASMINE-7 Date YASMINE - 7 assessed: 04/05/23 Source: Developed by Drs. Ben Mcallister, Antoinette Machado, Garcia Joyce and colleagues, with an educational agnes from [employer]. Physical exam (Primary Care) Tobacco/Smoking Status: Tobacco use Status Tobacco use date assessed 07/10/23 01/18/24 13:52 Patient Tobacco Use Status Never used Tobacco 01/18/24 13:52 e-Cigarette/Vaping Use Never Used 01/18/24 13:52 Thrive Assessment: Date of Thrive Assessment Date Thrive assessed 01/18/24 02/05/24 13:33 Currently or been in a relationship where the following occur: No concerns reported Coding
--- NOTE | 2024-11-17 13:29 | A.OFFVIS_ITS ---
Intake Vital Signs 11/17/24 13:34 Weight 213 lb 6 oz BP 134/76 Blood Pressure Location Lt brachial Position Sitting Respiration 14 Pulse 71 Pulse Source Pulse Oximeter Temp 98.6 F Temp Source Oral Pulse Oximetry (%) 98 Oxygen Delivery Method Room Air Intake Visit Reasons: MAWV with f/u labs & health maint. -see comments Intake Note: Medical wellness visit Sql Application Developer Required: No Allergies No Known Allergies Allergy (Verified 11/17/24 13:47) Medication List - Last Reconciled 11/17/24 by EDU Mandujano- amlodipine 5 mg PO DAILY 90 days finasteride 5 mg PO DAILY 90 days lisinopril 40 mg PO DAILY 90 days meloxicam 15 mg PO DAILY 30 days tamsulosin 0.4 mg PO BEDTIME 90 days HPI HPI Comments History of Present Illness Details Here today for AWV. The Medicare Annual Wellness Visit (AWV) is a yearly appointment with a health professional to identify health risks and help reduce them and to create or update a personalized prevention plan. During a Medicare AWV, health professionals should also review any current opioid prescriptions, detect any cognitive impairment, and establish or update medical and family history. 74 y/o M with BPH, HLD, prediabetes, HTN SurgHx: Y FHx: Y SocHx: Y Health Maintenance: See scanned preventative medicine assessment with personalized health plan and screening schedule. Colon: cologaurd ordered today Vaccines: Tdap declined; AAA screen EKG: done today WNL Yoder of Care: as documented in chart Visual Acuity: Just had DOT exam, cleared for 2 years. No Glasses. Hearing Screening: No concerns; reports had hearing test ACP: HCP Y, ACP Y DNR DNI Dietary/Nutrition/Exercise Edu provided: Y During the course of the visit the patient was educated and counseled about appropriate screening and preventative services. Patient instructions were provided to the patient in written or electronic format. I have reviewed and verified the above information. History of Present Illness - The patient is a 74-year-old male pres enting for an annual Medicare visit and chronic disease management. - BPH treated with finasteride and tamsu losin. - Essential Hypertension controlled with lisinopril and amlodipine. - Prediabetes with HbA1c: 5.6%. Prediabe toney persists without progression. - Previous colonoscopy over 10 years ago ; home screening preferred over colonoscopy. - Declines flu/shingles vaccination, com pleted COVID-19 series. - Passed recent DOT physical without com plications. - Regular prostate labs managed by urolo gist. - ETOH, cont to drink QD. 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 - Enjoys long-distance driving and has a history of race car driving. Health Maintenance - Colon cancer screening deferred to lida e test instead of colonoscopy. - HbA1c performed: 5.6%, confirming pred iabetes management is unchanged. - Tetanus vaccination discussion, patien t opted out. - Recommendation for blood tests for cho lesterol, hepatitis, and HIV; patient consented. - Passed recent DOT physical, ensuring f itness for driving. Review of Systems - General: Reports no other concerns or problems. - Cardiovascular: Reports successful DOT physical, no issues. - Endocrine: Denies progression to diabe toney; A1c was 5.6%. - Gastrointestinal: Colonoscopy not done ; prefers mail-in screening. - Immune: Declines flu and shingles vacc inations. - Urologic: Prostate labs monitored by u rologist, regular visits. Physical Exam General: Well developed, well nourished, in no acute distress. Appears stated age. Head: Normocephalic, atraumatic. Eyes: Pupils are equal, round and reactive to light and accommodation. Conjunctivae are clear. Vision grossly normal. Ears: TMs clear AU, EACS WNL. Hearing checked, no concerns noted. Nose: Patent, without discharge. Neck: Supple, no adenopathy or thyromegaly. No pain on examination. Breast: Edu on SBE Lungs: Clear to auscultation bilaterally. No rales, rhonchi or wheeze noted. Good air flow in all reyes. Heart: Regular rate and rhythm. No murmurs, click, rubs or gallops are noted. EKG looked good. Abdomen: Bowel sounds present in all quadrants. The abdomen is soft, nontender, with no masses or organomegaly noted. No hernias are noted. : Deferred. Reviewed WILBER & recommendations Pulses: Peripheral pulses are equal and palpable bilaterally. Extremities: No clubbing, cyanosis nor edema is noted. No swelling or sores noted on legs or feet. Neurologic: Gait and station normal. Cranial Nerves 2-12 intact. Motor strength grossly symmetrical and intact. No sensory loss. Balance normal. Skin: No rashes, ulcers, or lesions noted. Turgor is good. Skin color is good. Hair and nails are without abnormalities. Psych: Normal eye contact, affect and mood appropriate, and normal interactions. Patient is alert and appropriate to context. Results - Labs: HbA1c 5.6%. - Tests: EKG good. Discussion Notes I discussed the annual Medicare visit and chronic disease management with the patient. We reviewed his current management of Benign Prostatic Hyperplasia and Essential Hypertension, both of which are stable under their current medication regimens. The patient's prediabetes status was confirmed with an HbA1c test result of 5.6%, showing no progression toward diabetes. We discussed options for colorectal cancer screening, and the patient expressed a preference for the home testing kit as opposed to a formal colonoscopy. The patient has declined additional vaccinations for flu and shingles but has completed his COVID-19 vaccination series. Plans for routine labs for hypertension, hepatitis, and HIV screening were outlined, with patient consent obtained for these tests. Regular follow-up with his urologist will continue for prostate health monitoring. We also confirmed the patient's fitness for driving following his recent DOT physical approval, and arranged for lab results communication via phone. Patient was given time to ask questions. All questions were answered to their satisfaction. Assessment and Plan 1. Benign Prostatic Hyperplasia (BPH) - Continue finasteride and tamsulosin. - Regular urology visits. 2. Essential Hypertension - Maintain lisinopril and amlodipine the rapy. - Monitor blood pressure routinely. 3. Prediabetes - Maintain lifestyle modifications, incl uding diet. - Monitor HbA1c. 4. Colorectal Cancer Screening - Home test ordered. 5. Vaccinations - Declined flu/shingles; COVID complete. 6. Routine Labs - Ordered cholesterol, hepatitis, HIV te sts. - Results by phone. Patient Instructions - Keep taking your current medications a s prescribed. - Complete the home colorectal screening test when it arrives and mail it back. - Make lifestyle changes to help manage your prediabetes. Watch your diet and alcohol. - Call us if you get any new symptoms or have questions. - Your lab results will be given to you over the phone. - RTO 6 mo for routine fu with PCP, soon er PRN Consent Patient was informed and verbally consented to the use of an ambient scribe for clinic note documentation during this visit. An additional 30 minutes was spent addressing the problem(s) noted at todays visit. This includes time spent before the visit reviewing the chart, time spent during the visit, and time spent after the visit on documentation reviewing laboratory results, diagnostic imaging, medications, performing a medically necessary evaluation, counseling on diagnoses, care coordination, ordering ap propriate tests, ordering appropriate medications, review of tests performed by other providers, reporting test results with the patient, communication with other healthcare providers. [facility] Medical History (Reviewed 02/05/24 @ 19:48 by EDU [facility] Hypertension Surgical History (Updated 10/16/23 @ 14:50 by EMILY Bourne) No pertinent past surgical history Family History Mother Hypertension Hyperlipidemia No family history of mental disorder Father No family history of mental disorder Hypertension Hyperlipidemia Social History Household Members: Spouse Housing: House Alcohol intake: current Alcohol intake frequency: 3 or more drinks per day Alcohol type: beer Patient Tobacco Use Status: Never used Tobacco e-Cigarette/Vaping Use: Never Used Second Hand Smoke Exposure: No service: No Current occupational status: employed 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 Cognitive needs: No Hearing needs: No Vision needs: No Questionnaire Medicare Wellness Checkup What [age]?: [age] What gender do you identify with?: male During the past 4 weeks, how much have you been bothered by emotional problems such as feeling anxious, depressed, irritable, sad or downhearted, and blue?: not at all During the past 4 weeks, has your physical & emotional health limited your social activities with family, friends, neighbors, or groups?: not at all During the past 4 weeks, how much bodily pain have you generally had?: no pain During the past 4 weeks, was someone available to help you if you needed & wanted help?: yes, as much as I wanted During the past 4 weeks, what was the hardest physical activity you could do for at least 2 minutes?: heavy Can you get to places out of walking distance without help? (For eg., can you travel alone on buses, taxis or drive your car?): Yes Can you go shopping for groceries or clothes without someone's help?: Yes Can you prepare your own meals?: Yes Can you do your housework without help?: Yes Because of any health problems, do you need the help of another person with your personal care needs such as eating, bathing, dressing or getting around the house?: No Can you handle your own money without help?: Yes During the past 4 weeks, how would you rate your health in general?: excellent During the past 4 weeks how have things been going for you?: very well; could hardly better Are you having difficulties driving your car?: no Do you always fasten your seat belt when you are in a car?: yes, usually During past 4 weeks, have you been bothered by the following: never: Falling or dizzy when standing up, Sexual problems?, Trouble eating well?, Teeth or denture problems?, Problems using the telephone? and Tiredness or fatigue? Have you fallen 2 or more times in the past year?: No Are you afraid of falling?: No Are you a smoker?: no During the past 4 weeks, how many drinks of wine, beer, or other alcoholic beverages did you have?: 10 or more per week Do you exercise for about 20 minutes 3 or more times a week?: yes, all the time Have you been given information to help with the following?: no: Hazards in your house that might hurt you? and no: Keeping track of your medications? How often do you have trouble taking medicines the way you have been told to take them?: I always take medicine as prescribed How confident are you that you can control & manage most of your health problems?: very confident What is your race?: White Activity of Daily Living Bathing - sponge bath, tub bath or shower: receives no assistance (gets in/out by self, if usual bathing means Dressing - getting clothes from closets & drawers, including inner/outer garments & fasteners.: gets clothes & gets completely dressed without help Toileting - going to the 'toilet room' for urine/bowel elimination & cleaning self/arranging clothes: goes to toilet room, cleans self, arranges clothes without help Transfer: moves in & out of bed and chair without help (may use support object) Continence: controls urination/bowel movements completely by self Feeding: feeds self without help Total Score: 0 Information obtained from: patient Using telephone: independent Traveling: independent Shopping: independent Preparing meals: independent Housework: independent Taking medicine: independent Managing money: independent PHQ-9 Over the last 2 weeks, how often have you been bothered by any of the following problems? 1. Little interest or pleasure in doing things: not at all 2. Feeling down, depressed, or hopeless: not at all 3. Trouble falling or staying asleep, or sleeping too much: not at all 4. Feeling tired or having little energy: not at all 5. Poor appetite or overeating: not at all 6. Feeling bad about yourself - or that you are a failure or have let yourself or your family down: not at all 7. Trouble concentrating on things, such as reading the newspaper or watching television: not at all 8. Moving or speaking so slowly that other people could have noticed. Or the opposite - being so fidgety or restless that you have been moving around a lot more than usual: not at all 9. Thoughts that you would be better off or of hurting yourself in some way: not at all Total score: 0 Depression Screening Interpretation: Negative Depression Screening Done: Yes 77263 - PHQ-9 Billing: Yes Source: Developed by Drs. Ben Mcallister, Antoinette Machado, Garcia Joyce and colleagues, with an educational agnes from [employer]. Physical Exam Vital Signs: Last Vital Signs Temp 98.6 F 11/17/24 13:34 Pulse 71 11/17/24 13:34 Resp 14 11/17/24 13:34 BP 134/76 11/17/24 13:34 Pulse Ox 98 11/17/24 13:34 Oxygen Delivery Method Room Air 11/17/24 13:34 Office Procedures EKG [id number], Complete Vision Screening Right Eye: 20/20 Left Eye: 20/15 Bilateral: 20/13 73115 - Vision Screening Results AMB Hemoglobin A1c AMB Hemoglobin A1c 5.6 % Last Edit by Jennifer Shields CMA on 11/17/24 13:55 Assessment & Plan Assessment & Plan (1) Encounter for subsequent annual wellness visit (AWV) in Medicare patient: Onset Date: ~11/17/24 Code(s): Z00.00 - Encounter for general adult medical examination without abnormal findings (2) Alcohol use: Code(s): Z78.9 - Other specified health status (3) Essential hypertension: Code(s): I10 - Essential (primary) hypertension (4) Hyperlipidemia: Code(s): E78.5 - Hyperlipidemia, unspecified Qualifiers: Hyperlipidemia type: mixed hyperlipidemia Qualified Code(s): E78.2 - Mixed hyperlipidemia (5) Pre-diabetes: Code(s): R73.03 - Prediabetes (6) Screening for colon cancer: Code(s): Z12.11 - Encounter for screening for malignant neoplasm of colon (7) BPH (benign prostatic hyperplasia): Code(s): N40.0 - Benign prostatic hyperplasia without lower urinary tract symptoms Qualifiers: Lower urinary tract symptom presence: symptoms present Lower urinary tract symptom detail: nocturia Qualified Code(s): N40.1 - Benign prostatic hyperplasia with lower urinary tract symptoms; R35.1 - Nocturia (8) Erectile dysfunction: Code(s): N52.9 - Male erectile dysfunction, unspecified Qualifiers: Erectile dysfunction type: unspecified Qualified Code(s): N52.9 - Male erectile dysfunction, unspecified (9) Tetanus, diphtheria, and acellular pertussis (Tdap) vaccination declined: Code(s): Z28.21 - Immunization not carried out because of patient refusal (10) DNR (do not resuscitate): Code(s): Z66 - Do not resuscitate (11) ACP (advance care planning): Code(s): Z71.89 - Other specified counseling Plan . Orders: Orders AMB Hemoglobin A1c Today R73.03 - Prediabetes Hepatitis A,B,C Profile Today E78.5 - Hyperlipidemia, unspecified, I10 - Essential (primary) hypertension, R73.03 - Prediabetes Complete Blood Count no Diff Today E78.5 - Hyperlipidemia, unspecified, I10 - Essential (primary) hypertension, R73.03 - Prediabetes Lipid Panel Today E78.5 - Hyperlipidemia, unspecified, I10 - Essential (primary) hypertension, R73.03 - Prediabetes Microalbumin, Random (w Creat) Today E78.5 - Hyperlipidemia, unspecified, I10 - Essential (primary) hypertension, R73.03 - Prediabetes HIV Ab/Ag Today E78.5 - Hyperlipidemia, unspecified, I10 - Essential (primary) hypertension, R73.03 - Prediabetes Comprehensive Met. Panel Today E78.5 - Hyperlipidemia, unspecified, I10 - Essential (primary) hypertension, R73.03 - Prediabetes Vitamin B12 and Folate Today E78.5 - Hyperlipidemia, unspecified, I10 - Essential (primary) hypertension, R73.03 - Prediabetes TSH reflex Free T4 Today E78.5 - Hyperlipidemia, unspecified, I10 - Essential (primary) hypertension, R73.03 - Prediabetes Vitamin D 25-OH Total Today E78.5 - Hyperlipidemia, unspecified, I10 - Essential (primary) hypertension, R73.03 - Prediabetes Referrals Cologuard Test Z12.11 - Encounter for screening for malignant neoplasm of colon, Z12.12 - Encounter for screening for malignant neoplasm of rectum Medications: Refilled 2 tamsulosin 0.4 mg PO BEDTIME 90 caps 3RF 90 days N40.1 - Benign prostatic hyperplasia with lower urinary tract symptoms, R35.1 - Nocturia Patient Instructions: HEALTH SCREENINGS FOR MEN YOU SHOULD VISIT YOUR HEALTH CARE PROVIDER REGULARLY, EVEN IF YOU FEEL HEALTHY. THE PURPOSE OF THESE VISITS IS TO: SCREEN FOR MEDICAL ISSUES ASSESS YOUR RISK FOR FUTURE MEDICAL PROBLEMS ENCOURAGE A HEALTHY LIFESTYLE UPDATE VACCINATIONS AND OTHER PREVENTIVE CARE SERVICES HELP YOU GET TO KNOW YOUR PROVIDER IN CASE OF AN ILLNESS INFORMATION EVEN IF YOU FEEL FINE, YOU SHOULD STILL SEE YOUR PROVIDER FOR REGULAR CHECKUPS. THESE VISITS CAN HELP YOU AVOID PROBLEMS IN THE FUTURE. FOR EXAMPLE, THE ONLY WAY TO FIND OUT IF YOU HAVE HIGH BLOOD PRESSURE IS TO HAVE IT CHECKED REGULARLY. HIGH BLOOD SUGAR AND HIGH CHOLESTEROL LEVEL ALSO MAY NOT HAVE ANY SYMPTOMS IN THE EARLY STAGES. SIMPLE BLOOD TESTS CAN CHECK FOR THESE CONDITIONS. THERE ARE SPECIFIC TIMES WHEN YOU SHOULD SEE YOUR PROVIDER OR RECEIVE SPECIFIC HEALTH SCREENINGS. THE [employer] PREVENTIVE SERVICES [employer] PUBLISHES A LIST OF RECOMMENDED SCREENINGS. BELOW ARE SCREENING GUIDELINES FOR MEN AGES 40 TO 64. BLOOD PRESSURE SCREENING HAVE YOUR BLOOD PRESSURE CHECKED AT LEAST ONCE EVERY YEAR. WATCH FOR BLOOD PRESSURE SCREENINGS IN YOUR AREA. ASK YOUR PROVIDER IF YOU CAN STOP IN TO HAVE YOUR BLOOD PRESSURE CHECKED. ASK YOUR PROVIDER IF YOU NEED YOUR BLOOD PRESSURE CHECKED MORE OFTEN IF: YOU HAVE DIABETES, HEART DISEASE, KIDNEY PROBLEMS, OR ARE OVERWEIGHT OR HAVE CERTAIN OTHER HEALTH CONDITIONS YOU HAVE A FIRST-DEGREE RELATIVE WITH HIGH BLOOD PRESSURE YOU ARE BLACK YOUR BLOOD PRESSURE TOP NUMBER IS FROM 120 TO 129 MM HG, OR THE BOTTOM NUMBER IS FROM 70 TO 79 MM HG IF THE TOP NUMBER IS 130 MM HG OR GREATER OR THE BOTTOM NUMBER IS 80 MM HG OR GREATER, THIS IS CONSIDERED STAGE 1 HYPERTENSION. SCHEDULE AN APPOINTMENT WITH YOUR PROVIDER TO LEARN HOW YOU CAN LOWER YOUR BLOOD PRESSURE. EFFECTS OF AGE ON BLOOD PRESSURE CHOLESTEROL SCREENING CHOLESTEROL SCREENING SHOULD BEGIN AT AGE 35 FOR MEN WITH NO KNOWN RISK FACTORS FOR CORONARY HEART DISEASE. REPEAT CHOLESTEROL SCREENING SHOULD TAKE PLACE: EVERY 5 YEARS FOR MEN WITH NORMAL CHOLESTEROL LEVELS MORE OFTEN IF CHANGES OCCUR IN LIFESTYLE (INCLUDING WEIGHT GAIN AND DIET) MORE OFTEN IF YOU HAVE DIABETES, HEART DISEASE, KIDNEY PROBLEMS, OR CERTAIN OTHER CONDITIONS COLORECTAL CANCER SCREENING IF YOU ARE UNDER AGE 45, TALK TO YOUR PROVIDER ABOUT GETTING SCREENED. YOU MAY NEED TO BE SCREENED IF YOU HAVE A STRONG FAMILY HISTORY OF COLON CANCER OR POLYPS. SCREENING MAY ALSO BE CONSIDERED IF YOU HAVE RISK FACTORS SUCH A HISTORY OF INFLAMMATORY BOWEL DISEASE OR POLYPS. IF YOU ARE AGE 45 TO 75, YOU SHOULD BE SCREENED FOR COLORECTAL CANCER. THERE ARE SEVERAL SCREENING TESTS AVAILABLE: A STOOL-BASED FECAL OCCULT BLOOD (GFOBT) OR FECAL IMMUNOCHEMICAL TEST (FIT) EVERY YEAR A STOOL SDNA TEST EVERY 1 TO 3 YEARS FLEXIBLE SIGMOIDOSCOPY EVERY 5 YEARS OR EVERY 10 YEARS WITH STOOL TESTING FIT DONE EVERY YEAR CT COLONOGRAPHY (VIRTUAL COLONOSCOPY) EVERY 5 YEARS COLONOSCOPY EVERY 10 YEARS YOU MAY NEED A COLONOSCOPY MORE OFTEN IF YOU HAVE RISK FACTORS FOR COLORECTAL CANCER, SUCH : ULCERATIVE COLITIS A PERSONAL OR FAMILY HISTORY OF COLORECTAL CANCER A HISTORY OF GROWTHS IN YOUR COLON CALLED ADENOMATOUS POLYPS DENTAL EXAM GO TO THE DENTIST ONCE OR TWICE EVERY YEAR FOR AN EXAM AND CLEANING. YOUR DENTIST WILL EVALUATE IF YOU HAVE A NEED FOR MORE FREQUENT VISITS. DIABETES SCREENING ALL ADULTS WHO DO NOT HAVE RISK FACTORS FOR DIABETES SHOULD BE SCREENED STARTING AT AGE 35 AND REPEATED EVERY 3 YEARS. IF YOU HAVE OTHER RISK FACTORS FOR DIABETES, SUCH A FIRST DEGREE RELATIVE WITH DIABETES, OVERWEIGHT OR OBESITY, HIGH BLOOD PRESSURE, PREDIABETES, OR A HISTORY OF HEART DISEASE, YOU MAY BE TESTED MORE OFTEN. IF YOU ARE OVERWEIGHT AND HAVE OTHER RISK FACTORS, SUCH HIGH BLOOD PRESSURE AND ARE PLANNING TO BECOME , SCREENING IS RECOMMENDED. EYE EXAM HAVE AN EYE EXAM EVERY 2 TO 4 YEARS AGES 40 TO 54 AND EVERY 1 TO 3 YEARS AGES 55 TO 64. YOUR PROVIDER MAY RECOMMEND MORE FREQUENT EYE EXAMS IF YOU HAVE VISION PROBLEMS OR GLAUCOMA RISK. HAVE AN EYE EXAM THAT INCLUDES AN EXAMINATION OF YOUR RETINA (BACK OF YOUR EYE) AT LEAST EVERY YEAR IF YOU HAVE DIABETES. IMMUNIZATIONS COMMONLY NEEDED VACCINES INCLUDE: FLU SHOT: GET ONE EVERY YEAR COVID-19 VACCINE: ASK YOUR PROVIDER WHAT IS BEST FOR YOU TETANUS-DIPHTHERIA AND ACELLULAR PERTUSSIS (TDAP) VACCINE: HAVE ONE OF YOUR TETANUS-DIPHTHERIA VACCINES IF YOU DID NOT RECEIVE IT AN ADOLESCENT TETANUS-DIPHTHERIA: HAVE A BOOSTER (OR TDAP) EVERY 10 YEARS VARICELLA VACCINE: RECEIVE 2 DOSES IF YOU NEVER HAD CHICKENPOX OR THE VARICELLA VACCINE AND WERE BORN IN 1979 OR AFTER HEPATITIS B VACCINE: RECEIVE 2, 3, OR 4 DOSES, DEPENDING ON YOUR EXACT CIRCUMSTANCES, IF YOU DID NOT RECEIVE THESE A CHILD OR ADOLESCENT, UNTIL AGE 59 SHINGLES (HERPES ZOSTER) VACCINE: AT OR AFTER AGE 50 ASK YOUR PROVIDER IF YOU SHOULD RECEIVE OTHER IMMUNIZATIONS, ESPECIALLY IF YOU HAVE CERTAIN MEDICAL CONDITIONS, SUCH DIABETES OR ARE AT INCREASED RISK FOR SOME DISEASES SUCH PNEUMONIA. INFECTIOUS DISEASE SCREENING SCREENING FOR HEPATITIS C: ALL ADULTS AGES 18 TO 79 SHOULD GET A ONE-TIME TEST FOR HEPATITIS C. SCREENING FOR HUMAN IMMUNODEFICIENCY VIRUS (HIV): ALL PEOPLE AGES 15 TO 65 SHOULD GET A ONE-TIME TEST FOR HIV. DEPENDING ON YOUR LIFESTYLE AND MEDICAL HISTORY, YOU MAY NEED TO BE SCREENED FOR INFECTIONS SUCH SYPHILIS, CHLAMYDIA, AND OTHER INFECTIONS. LUNG CANCER SCREENING YOU SHOULD HAVE AN ANNUAL SCREENING FOR LUNG CANCER WITH LOW-DOSE COMPUTED TOMOGRAPHY (LDCT) IF: YOU ARE AGE 50 TO 80 YEARS AND YOU HAVE A 20 PACK-YEAR SMOKING HISTORY AND YOU CURRENTLY SMOKE OR HAVE QUIT WITHIN THE PAST 15 YEARS OSTEOPOROSIS SCREENING IF YOU ARE AGE 50 TO 64 AND HAVE RISK FACTORS FOR OSTEOPOROSIS, YOU SHOULD DISCUSS SCREENING WITH YOUR PROVIDER. RISK FACTORS CAN INCLUDE LONG-TERM STEROID USE, LOW BODY WEIGHT, SMOKING, HEAVY ALCOHOL USE, HAVING A FRACTURE AFTER AGE 50, OR A FAMILY HISTORY OF HIP FRACTURE OR OSTEOPOROSIS. OSTEOPOROSIS PHYSICAL EXAM ALL ADULTS SHOULD VISIT THEIR PROVIDER FROM TIME TO TIME, EVEN IF THEY ARE HEALTHY. THE PURPOSE OF THESE VISITS IS TO: SCREEN FOR DISEASES ASSESS RISK OF FUTURE MEDICAL PROBLEMS ENCOURAGE A HEALTHY LIFESTYLE UPDATE VACCINATIONS AND OTHER PREVENTIVE CARE SERVICES MAINTAIN A RELATIONSHIP WITH A PROVIDER IN CASE OF AN ILLNESS YOUR HEIGHT, WEIGHT, AND BODY MASS INDEX (BMI) SHOULD BE CHECKED AT EVERY EXAM. DURING YOUR EXAM, YOUR PROVIDER MAY ASK YOU ABOUT: DEPRESSION AND ANXIETY DIET AND EXERCISE ALCOHOL AND TOBACCO USE SAFETY, SUCH USE OF SEAT BELTS AND SMOKE DETECTORS YOUR MEDICINES AND RISK FOR INTERACTIONS PROSTATE CANCER SCREENING IF YOU'RE 55 THROUGH 69 YEARS OLD, BEFORE HAVING THE TEST, TALK TO YOUR PROVIDER ABOUT THE PROS AND CONS OF HAVING A PSA TEST. ASK ABOUT: WHETHER SCREENING DECREASES YOUR CHANCE OF DYING FROM PROSTATE CANCER. WHETHER THERE IS ANY HARM FROM PROSTATE CANCER SCREENING, SUCH SIDE EFFECTS FROM TESTING OR OVERTREATMENT OF CANCER WHEN DISCOVERED. WHETHER YOU HAVE A HIGHER RISK OF PROSTATE CANCER THAN OTHERS. IF YOU ARE AGE 55 OR YOUNGER, SCREENING IS NOT GENERALLY RECOMMENDED. YOU SHOULD TALK WITH YOUR PROVIDER ABOUT IF YOU HAVE A HIGHER RISK FOR PROSTATE CANCER. RISK FACTORS INCLUDE: HAVING A FAMILY HISTORY OF PROSTATE CANCER (ESPECIALLY A BROTHER OR FATHER) BEING IF YOU CHOOSE TO BE TESTED, THE PSA BLOOD TEST IS REPEATED OVER TIME (YEARLY OR LESS OFTEN), THOUGH THE BEST FREQUENCY IS NOT KNOWN. PROSTATE EXAMINATIONS ARE NO LONGER ROUTINELY DONE ON MEN WITH NO SYMPTOMS. PROSTATE CANCER SKIN EXAM YOUR PROVIDER MAY CHECK YOUR SKIN FOR SIGNS OF SKIN CANCER, ESPECIALLY IF YOU'RE AT HIGH RISK. PEOPLE AT HIGH RISK INCLUDE THOSE WHO HAVE HAD SKIN CANCER BEFORE, HAVE CLOSE RELATIVES WITH SKIN CANCER, OR HAVE A WEAKENED IMMUNE SYSTEM. TESTICULAR EXAM THE [place] [employer]VENT[employer] ([employer]STF) NOW RECOMMENDS AGAINST PERFORMING TESTICULAR SELF-EXAMS. DOING TESTICULAR SELF-EXAMS HAS BEEN SHOWN TO HAVE LITTLE TO NO BENEFIT. Quality Reporting (2019) Adult ([facility] 138/05/24/68) Smoking risk assessment performed?: Yes Patient Tobacco Use Status: Never used Tobacco Depression screening performed: Yes Screen Results: Yes Negative screen Systolic BP not done?: No Diastolic BP not done?: No BMI screening not done: No Sexual Activity Screening ([facility] 153) Sexually active?: No Immunizations ([facility] 147, 117) Annual Influenza Vaccine: No Measles Antibody Test: No Mumps Antibody Test: No Rubella Antibody Test: No Varicella Antibody Test: No Anti Hepatitis A IgG Antigen test: No Anti Hepatitis B Virus Surface Ab test: No Fall Risk Screening ([facility] 139) Last assessed Fall Risk: 11/17/24 Fall risk assessment: No Falls in past year Dementia Assessment ([facility] 149) Cognitive assessment recorded: Yes Assessment of cognition with standardized tool: Yes Depression/Bipolar (159/160/161/177) PHQ-9: Total score: 0 Ophthalmol:Cataracts Visual Acuity (133) Visual acuity exam performed: Yes (SEE RESULTS ) Coding Level of Care Code Medicare Subsequent (G0439) Est Pt Level 4 (16093) Diagnoses Encounter for subsequent annual wellness visit (AWV) in Medicare patient Z00.00 Alcohol use Z78.9 Essential hypertension I10 Mixed hyperlipidemia E78.2 Hyperlipidemia type: mixed hyperlipidemia Pre-diabetes R73.03 Screening for colon cancer Z12.11 Benign prostatic hyperplasia with nocturia N40.1; R35.1 Lower urinary tract symptom presence: symptoms present Lower urinary tract symptom detail: nocturia Erectile dysfunction, unspecified erectile dysfunction type N52.9 Erectile dysfunction type: unspecified Tetanus, diphtheria, and acellular pertussis (Tdap) vaccination declined Z28.21 DNR (do not resuscitate) Z66 ACP (advance care planning) Z71.89 CPT Codes Advance Care Planning - Time spent: 1-15 minutes, not on file ([id number]) EKG - CPT: 59284-[id number], Complete ([id number]) Vision Screening - Vision Screenin - Vision Screening ([id number]) Additional Codes PHQ-9 - 06602 - PHQ-9 Billing: Yes ([id number]) Advance Care Planning Advance Care Planning discussion: Exists, not on file Date of discussion: 11/17/24 Who was present: SELF Forms completed: Health Care Proxy, MOLST and Living will Time spent: 1-15 minutes, not on file Actual minutes spent: 5
[2024-11-17 13:34] VITALS: BP 134/76; PULSE 71; RESP 14; TEMP 37; O2SAT 98
== END 2024-11-17 14:12 | disposition home or self-care (01) ==
LOC: HO.HMCFM 13:00
PROVIDERS: PCP Family Medicine; Visit Provider Nurse Practitioner Family
DX: Z00.00 Encounter for general adult medical examination without abnormal findings (principal); I10 Essential (primary) hypertension; E78.2 Mixed hyperlipidemia; N40.1 Benign prostatic hyperplasia with lower urinary tract symptoms; R73.03 Prediabetes; Z78.9 Other specified health status; Z12.11 Encounter for screening for malignant neoplasm of colon; R35.1 Nocturia; N52.9 Male erectile dysfunction, unspecified; Z28.21 Immunization not carried out because of patient refusal; Z66 Do not resuscitate; Z71.89 Other specified counseling

== ENCOUNTER 2025-01-07 10:26 | Outpatient (AMB) | payer MEDICARE, SELFPAY ==
--- NOTE | 2025-01-07 10:29 | MHC.PC.OV ---
Vital Signs 01/07/25 10:35 Height 5 ft 10.5 in Weight 213 lb 4 oz BMI 30.2 BP 159/75 H Blood Pressure Location Rt brachial Position Sitting Respiration 16 Pulse 55 Pulse Source Pulse Oximeter Temp 98.1 F Temp Source Oral Pulse Oximetry (%) 98 Oxygen Delivery Method Room Air Intake Visit Reasons: hip pain Intake Note: patient here c/o hip pain he has an appt for xray and would like pain meds and have a question about his cholesterol Gore Cutter Required: No Allergies No Known Allergies Allergy (Verified 01/07/25 10:34) Medication List - Last Reconciled 01/07/25 by Vinicius Jordan MD amlodipine 5 mg PO DAILY 90 days atorvastatin (Lipitor) 20 mg PO BEDTIME cyanocobalamin (vitamin B-12) 5,000 mcg PO DAILY finasteride 5 mg PO DAILY 90 days lisinopril 40 mg PO DAILY 90 days meloxicam 15 mg PO DAILY 30 days tamsulosin 0.4 mg PO BEDTIME 90 days Tobacco use date assessed: 01/07/25 Fall risk assessment: No Falls in past year Last assessed Fall Risk: 01/07/25 Dental Screening Dental Screen Date: 01/07/25 Did you have a dental visit in the last 12 months?: No Did you have a dental problem in the last 6 months where you did not have access to dental care?: No Was dental information given to patient?: Patient has dentist HPI hip pain HPI Details 74 y/o male presents to f/u hip pain. Also reviewing labs drawn in October. Labs drawn 11/17/24. Reviewed labs with pt. Triglycerides 99. TC 222. LDL 132. HDL 71. Blood pressure today 159/75, 55p. He is on lisinopril 40mg, amlodipine 5mg. Reports ongoing hip pain/achiness. FORMERLY [facility] Medical History Hypertension Surgical History (Updated 10/16/23 @ 14:50 by EMILY Bourne) No pertinent past surgical history Family History Mother Hypertension Hyperlipidemia No family history of mental disorder Father No family history of mental disorder Hypertension Hyperlipidemia Social History Household Members: Spouse Housing: House Alcohol intake: current Alcohol intake frequency: 3 or more drinks per day Alcohol type: beer Patient Tobacco Use Status: Never used Tobacco e-Cigarette/Vaping Use: Never Used Second Hand Smoke Exposure: No service: No Current occupational status: employed 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 1. Little interest or pleasure in doing things: not at all 2. Feeling down, depressed, or hopeless: not at all Source: Developed by Drs. Ben Mcallister, Antoinette Machado, Garcia Joyce and colleagues, with an educational agnes from [employer]. Thrive Questionnaire Date Thrive assessed: 01/07/25 YASMINE-7 AMB Questionnaire YASMINE-7 Date YASMINE - 7 assessed: 04/05/23 Source: Developed by Drs. Ben Mcallister, Antoinette Machado, Garcia Joyce and colleagues, with an educational agnes from [employer]. Review of Systems Const Denies chills, Denies fatigue, Denies fever(s), Denies headache(s) and Denies weakness ENT Denies dizziness and Denies headache(s) Card Denies dyspnea Resp Denies cough, Denies dyspnea, Denies wheezing and Denies other (shortness of breath) Musc Details: Hip pain Denies numbness and Denies tingling Neuro Denies dizziness, Denies headache(s), Denies numbness, Denies tingling and Denies weakness Psych Denies anxiety and Denies depression Endo Denies fatigue Aller/Immun Denies wheezing Physical exam (Primary Care) Vital Signs: Last Vital Signs Temp 98.1 F 01/07/25 10:35 Pulse 55 01/07/25 10:35 Resp 16 01/07/25 10:35 BP 159/75 H 01/07/25 10:35 Pulse Ox 98 01/07/25 10:35 Oxygen Delivery Method Room Air 01/07/25 10:35 BMI result Body Mass Index 30.2 Tobacco/Smoking Status: Tobacco use Status Tobacco use date assessed 01/07/25 01/07/25 10:39 Patient Tobacco Use Status Never used Tobacco 01/07/25 10:30 e-Cigarette/Vaping Use Never Used 01/07/25 10:30 Thrive Assessment: Date of Thrive Assessment Date Thrive assessed 01/07/25 01/07/25 10:30 Const General: well developed; No acute distress Nutritional Appearance: well nourished Orientation/consciousness: patient oriented x3 HENMT Head: Yes normocephalic and Yes atraumatic Eyes General: appearance normal, both eyes and all related structures Pupils: Equal, round and reactive pupils present EOM: EOMs intact bilaterally Resp Effort & Inspection: normal respiratory effort Neuro General: patient oriented x3 and gait normal Cranial nerves: Yes Equal, round and reactive pupils present Psych Affect: normal affect Coding Level of Care Code Est Pt Level 4 (49118) Diagnoses Hip pain M25.559 Mixed hyperlipidemia E78.2 Hyperlipidemia type: mixed hyperlipidemia Essential hypertension I10 Assessment & Plan Assessment & Plan (1) Hip pain: Code(s): M25.559 - Pain in unspecified hip Category: Medical Plan: Primarily right lateral hip pain and gluteal muscle pain Likely a piriformis syndrome On questioning, he does have mild groin pain - may have some hip joint arthritis He wants to follow-up with his chiropractor and they are considering techniques such as dry needling and exercises. Will check x-rays of the hip Refilled meloxicam I let him know that we can start physical therapy if other treatments are not fully resolving problem We can follow-up on the x-rays by telemedicine in a few weeks (2) Hyperlipidemia: Code(s): E78.5 - Hyperlipidemia, unspecified Category: Medical Qualifiers: Hyperlipidemia type: mixed hyperlipidemia Qualified Code(s): E78.2 - Mixed hyperlipidemia Plan: Lipids have been elevated and atorvastatin was prescribed by K.O. He has not started this yet. We had a long conversation about adverse effects, particularly achy muscles. He will try the medication. He can also try breaking in half titrating the medication as needed We also discussed that if he is having significant difficulty with atorvastatin we can try switching to another statin. Furthermore, we could try Zetia if he is unable to tolerate a statin at all. Patient agrees to try medication We can follow-up on his lipids at a subsequent visit (3) Essential hypertension: Code(s): I10 - Essential (primary) hypertension Category: Medical Plan: Blood pressure elevated today Typically is fairly well controlled. No changes to his current medication Will follow-up at his next visit in the office. Orders: Orders XR hip RT min 2V Today M25.551 - Pain in right hip Medications: Refilled meloxicam 15 mg PO DAILY 30 tabs 2RF 30 days
[2025-01-07 10:35] VITALS: BP 159/75; PULSE 55; RESP 16; TEMP 36.7; O2SAT 98; BMI 30.2
== END 2025-01-07 15:03 | disposition home or self-care (01) ==
LOC: HO.HMCFM 10:27
PROVIDERS: PCP Family Medicine; Visit Provider Family Medicine
DX: M25.559 Pain in unspecified hip (principal); E78.2 Mixed hyperlipidemia; I10 Essential (primary) hypertension

== ENCOUNTER → 2025-01-07 10:26 | Outpatient (BNVA) | payer MEDICARE, SELFPAY | PROVIDERS: PCP Family Medicine; Visit Provider Family Medicine | DX: M25.551 Pain in right hip (principal); E78.2 Mixed hyperlipidemia; I10 Essential (primary) hypertension; Z79.899 Other long term (current) drug therapy | CPT/HCPCS: 99212 ==

== ENCOUNTER 2025-01-08 12:26 | Outpatient (REF) | payer MEDICARE, SELFPAY ==
--- NOTE | ~2025-01-08 | XR_ITS ---
EXAMINATION: XR HIP, RIGHT CLINICAL INFORMATION: M25.551 - Pain in right hip COMPARISON: June 19, 2022 TECHNIQUE: AP and frog-leg lateral views of the right hip. FINDINGS: There is severe axial joint space narrowing. There are moderate marginal osteophyte involving femoral head and acetabulum. There is subchondral sclerosis and cystic change. There is sclerosis involving pubic symphysis joint. There is mild narrowing and subchondral sclerosis involving the right SI joint. XR/XR hip RT min 2V IMPRESSION: There are severe degenerative changes in the right hip joint, slightly increased from the prior. 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 Rheumatoid arthritis with secondary osteoarthritis is in the differential. Electronically signed by: Stanislaw Gee MD 01/08/2025 01:36 PM EDT
== END 2025-01-08 12:27 | disposition home or self-care (01) ==
LOC: HO.XRAY 12:26
PROVIDERS: PCP Family Medicine; Visit Provider Family Medicine
DX: M25.551 Pain in right hip (principal)
CPT/HCPCS: 73502

== ENCOUNTER → 2025-01-08 12:30 | Outpatient (BNV) | payer MEDICARE, SELFPAY | PROVIDERS: PCP Family Medicine; Visit Provider Radiology Diagnostic Radiology | DX: M16.11 Unilateral primary osteoarthritis, right hip (principal) | CPT/HCPCS: 73502 ==

== ENCOUNTER 2025-02-02 11:50 | Outpatient (AMB) | payer MEDICARE, SELFPAY ==
--- NOTE | 2025-02-02 11:43 | MHC.PC.OV ---
Intake Visit Reasons: f/u hip xray via telemed Intake Note: patient is scheduled to review hip x-ray results Plant Etiologist Required: No Allergies No Known Allergies Allergy (Verified 01/07/25 10:34) Medication List - Last Reconciled 02/02/25 by Vinicius Jordan MD amlodipine 5 mg PO DAILY 90 days atorvastatin (Lipitor) 20 mg PO BEDTIME cyanocobalamin (vitamin B-12) 5,000 mcg PO DAILY finasteride 5 mg PO DAILY 90 days lisinopril 40 mg PO DAILY 90 days meloxicam 15 mg PO DAILY 30 days tamsulosin 0.4 mg PO BEDTIME 90 days Tobacco use date assessed: 01/07/25 Dental Screening Dental Screen Date: 01/07/25 HPI f/u hip xray via telemed HPI Details Telemedicine encounter to follow-up on x-rays of patient's right hip. Patient has some right gluteal and lateral hip pain but on further questioning. He noted groin pain as well. X-ray shows severe osteoarthritis with osteophytes. Patient says he has an appointment with an acute specialist March 23. He notes the pain is quite severe. He says that prednisone helped a lot but the meloxicam has not helped much. FORMERLY [facility] Medical History Hypertension Surgical History (Updated 10/16/23 @ 14:50 by EMILY Bourne) No pertinent past surgical history Family History Mother Hypertension Hyperlipidemia No family history of mental disorder Father No family history of mental disorder Hypertension Hyperlipidemia Social History Household Members: Spouse Housing: House Alcohol intake: current Alcohol intake frequency: 3 or more drinks per day Alcohol type: beer Patient Tobacco Use Status: Never used Tobacco e-Cigarette/Vaping Use: Never Used Second Hand Smoke Exposure: No service: No Current occupational status: employed Current occupation: [employer] Cognitive needs: No Hearing needs: No Vision needs: No Questionnaire Thrive Questionnaire Date Thrive assessed: 01/07/25 YASMINE-7 AMB Questionnaire YASMINE-7 Date YASMINE - 7 assessed: 04/05/23 Source: Developed by Drs. Ben LAntoinette Canales, Garcia Joyce and colleagues, with an educational agnes from [employer]. Review of Systems Const Denies chills, Denies fatigue, Denies fever(s), Denies headache(s) and Denies weakness ENT Denies dizziness and Denies headache(s) Card Denies chest pain, Denies lightheadedness, Denies dyspnea and Denies other (Palpitations) Resp Denies cough, Denies dyspnea, Denies wheezing and Denies other ( shortness of breath) Musc Details: Ongoing hip pain which patient says is keeping him up at night Denies numbness and Denies tingling Neuro Denies dizziness, Denies headache(s), Denies numbness, Denies tingling, Denies paresthesias and Denies weakness Psych Denies anxiety and Denies depression Endo Denies fatigue Aller/Immun Denies wheezing Physical exam (Primary Care) Tobacco/Smoking Status: Tobacco use Status Tobacco use date assessed 01/07/25 02/02/25 11:44 Patient Tobacco Use Status Never used Tobacco 02/02/25 11:44 e-Cigarette/Vaping Use Never Used 02/02/25 11:44 Thrive Assessment: Date of Thrive Assessment Date Thrive assessed 01/07/25 02/02/25 11:44 Telehealth Telehealth Telehealth Platform: Telephone Location of provider rendering services: practice address Location of patient: address on file Patient Identification confirmed using: Name, : Yes Telehealth method: voice only Patient verbally consented to treatment: Yes Patient verbally consented to billing insurance company: Yes Patient informed of any privacy concerns related to visit: Yes Minutes spent on Phone/Video with Pt.: 8 Coding Level of Care Code Tele Est Pt Level 2 (42594) Diagnoses Right hip pain M25.551 Assessment & Plan Assessment & Plan (1) Right hip pain: Code(s): M25.551 - Pain in right hip Category: Medical Plan: Ongoing and worsening right hip pain which patient says is keeping him up at night. X-ray shows severe arthritis. He does not warrant steroid injections though I did discuss that they might work well for him as he responded well to oral prednisone. He has an upcoming appointment with an orthopedic surgeon March 23. He will discuss all options. However, patient thinks he may opt for surgery. Meantime, patient says prednisone work well but meloxicam to not work as well. Will have him come in next week to discuss further pain control. Will give him another course of prednisone and he should continue meloxicam until then. Plan Orthopedic Surgeon Appt Mar 23
== END 2025-02-02 16:56 | disposition home or self-care (01) ==
LOC: HO.HMCFM 11:51
PROVIDERS: PCP Family Medicine; Visit Provider Family Medicine
DX: M25.551 Pain in right hip (principal)

== ENCOUNTER 2025-02-10 14:07 | Outpatient (AMB) | payer MEDICARE, SELFPAY ==
--- NOTE | 2025-02-10 14:10 | MHC.PC.OV ---
Vital Signs 02/10/25 14:13 Height 5 ft 10.5 in Weight 217 lb 6 oz BMI 30.7 BP 126/74 Blood Pressure Location Lt brachial Position Sitting Respiration 16 Pulse 71 Pulse Source Pulse Oximeter Temp 98.3 F Temp Source Oral Pulse Oximetry (%) 95 Oxygen Delivery Method Room Air Intake Visit Reasons: In office appt to discuss right hip pain control. Intake Note: patient is scheduled to follow up for right hip pain Filter Changer Required: No Allergies No Known Allergies Allergy (Verified 02/10/25 14:11) Medication List - Last Reconciled 02/10/25 by Vinicius Jordan MD amlodipine 5 mg PO DAILY 90 days atorvastatin (Lipitor) 20 mg PO BEDTIME cyanocobalamin (vitamin B-12) 5,000 mcg PO DAILY finasteride 5 mg PO DAILY 90 days lisinopril 40 mg PO DAILY 90 days meloxicam 15 mg PO DAILY 30 days prednisone 5 mg PO DAILY 10 days tamsulosin 0.4 mg PO BEDTIME 90 days Tobacco use date assessed: 01/07/25 Dental Screening Dental Screen Date: 01/07/25 HPI In office appt to discuss right hip pain control. HPI Details 74 y/o male presents to f/u R hip pain. Xray show: IMPRESSION: There are severe degenerative changes in the right hip joint, slightly increased from the prior. 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 Rheumatoid arthritis with secondary osteoarthritis is in the differential. Pt had noted steroid injections had worked well for him in the past. He has an appt. with ortho in March. FORMERLY [facility] Medical History Hypertension Surgical History (Updated 10/16/23 @ 14:50 by EMILY Bourne) No pertinent past surgical history Family History Mother Hypertension Hyperlipidemia No family history of mental disorder Father No family history of mental disorder Hypertension Hyperlipidemia Social History Household Members: Spouse Housing: House Alcohol intake: current Alcohol intake frequency: 3 or more drinks per day Alcohol type: beer Patient Tobacco Use Status: Never used Tobacco e-Cigarette/Vaping Use: Never Used Second Hand Smoke Exposure: No service: No Current occupational status: employed 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 Ben Mcallister, Antoinette Machado, Garcia Joyce and colleagues, with an educational agnes from [employer]. Review of Systems Const Denies chills, Denies fatigue, Denies fever(s), Denies headache(s) and Denies weakness ENT Denies dizziness and Denies headache(s) Card Denies dyspnea Resp Denies cough, Denies dyspnea, Denies wheezing and Denies other (shortness of breath) Musc Denies numbness and Denies tingling Neuro Denies dizziness, Denies headache(s), Denies numbness, Denies tingling and Denies weakness Psych Denies anxiety and Denies depression Endo Denies fatigue Aller/Immun Denies wheezing Physical exam (Primary Care) Vital Signs: Last Vital Signs Temp 98.3 F 02/10/25 14:13 Pulse 71 02/10/25 14:13 Resp 16 02/10/25 14:13 BP 126/74 02/10/25 14:13 Pulse Ox 95 02/10/25 14:13 Oxygen Delivery Method Room Air 02/10/25 14:13 BMI result Body Mass Index 30.7 Tobacco/Smoking Status: Tobacco use Status Tobacco use date assessed 01/07/25 02/10/25 14:16 Patient Tobacco Use Status Never used Tobacco 02/10/25 14:16 e-Cigarette/Vaping Use Never Used 02/10/25 14:16 Thrive Assessment: Date of Thrive Assessment Date Thrive assessed 01/07/25 02/10/25 14:16 Const General: well developed; No acute distress Nutritional Appearance: well nourished Orientation/consciousness: patient oriented x3 HENMT Head: Yes normocephalic and Yes atraumatic Eyes General: appearance normal, both eyes and all related structures Pupils: Equal, round and reactive pupils present EOM: EOMs intact bilaterally Resp Effort & Inspection: normal respiratory effort Neuro General: patient oriented x3 and gait normal Cranial nerves: Yes Equal, round and reactive pupils present Psych Affect: normal affect Coding Level of Care Code Est Pt Level 3 (86119) Diagnoses Right hip pain M25.551 Assessment & Plan Assessment & Plan (1) Right hip pain: Code(s): M25.551 - Pain in right hip Category: Medical Plan: X-ray shows severe arthritis of the right hip. 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 Rheumatoid arthritis with secondary osteoarthritis is in the differential. He will get labs to check inflammatory markers. Prednisone has been helping much more than meloxicam. Will use low doses of prednisone while he is awaiting his appointment with ortho on March 23. Dr Simmons. Advised him to continue using meloxicam and try to go as long as he can on meloxicam without prednisone, between any bursts of prednisone Orders: Orders IRON PROFILE Today M25.551 - Pain in right hip Ferritin Today M25.551 - Pain in right hip Erythrocyte Sedimentation Rate Today M25.551 - Pain in right hip CRP High Sensitivity Today M25.551 - Pain in right hip Cyclic Citrullinated Peptide Today M25.551 - Pain in right hip Comprehensive Met. Panel Today M25.551 - Pain in right hip Magnesium Today M25.551 - Pain in right hip Phosphorus Today M25.551 - Pain in right hip Rheumatoid Factor Today M25.551 - Pain in right hip Medications: Changed From prednisone 4 tabs daily for 4 days, 3 tabs daily for 2 days, 2 tabs daily for 2 days, 1 tab daily for 2 days PO daily; 10 days 28 tabs 0RF M25.551 - Pain in right hip To prednisone 5 mg PO DAILY 10 tabs 0RF 10 days M25.551 - Pain in right hip
[2025-02-10 14:13] VITALS: BP 126/74; PULSE 71; RESP 16; TEMP 36.8; O2SAT 95; BMI 30.7
== END 2025-02-10 15:13 | disposition home or self-care (01) ==
LOC: HO.HMCFM 14:07
PROVIDERS: PCP Family Medicine; Visit Provider Family Medicine
DX: M25.551 Pain in right hip (principal)

== ENCOUNTER → 2025-02-10 14:07 | Outpatient (BNVA) | payer MEDICARE, SELFPAY | PROVIDERS: PCP Family Medicine; Visit Provider Family Medicine | DX: M25.551 Pain in right hip (principal) | CPT/HCPCS: 99212 ==